=== PATIENT | male | born 2000 | race Caucasian/White ===

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

== ENCOUNTER 2019-03-31 16:36 | Inpatient (IN) ==
[2019-03-31] MEDS ORDERED: ONDANSETRON INJ 2 MG/ML 2 ML VIAL IV STA ×2 (17:01→18:57)
[2019-03-31] MEDS ORDERED: SODIUM CHLORIDE 0.9% 1000ML 1,000 ML IV SCH ×2 (17:15→21:15)
--- NOTE | 2019-03-31 17:26 | Emergency Department Note ---
Entered by Dilcia Jackson acting as a scribe for History of Present Illness General Chief complaint: Overdose (Intentional) Stated complaint: TOOK 64 TYLENOL Time Seen by Provider: 03/31/19 16:59 Source: patient and family (parents) Mode of arrival: ambulatory Limitations: no limitations History of Present Illness Provider complaint: Overdose (intentional) Onset (ago): hour(s) (around 0600 today) greater than 10 Location: mouth Radiation: non-radiation Pain Consistency: + other (episode) Maximum Pain Intensity: 7 Quality: + other (Tylenol overdose (intentional)) Associated symptoms: + nausea/vomiting and + other (Additional symptoms: right flank/abdominal pain. Denies: weight loss) The patient is a 19 year old male with a history of anorexia nervosa, depression, OCD, and an appendectomy who presents to the Emergency Room with complaints of an episode of an intentional overdose occurring around 0600 today. The patient reports that he took between 32-40 pills all at once. His father states that the patient lives with him and his and that he found the patient covered in vomit around 1530. The patient reports that he is currently nauseous and that his right side is painful. The patients note that they have not yet called Poison Control. The mother states that the patient has been in multiple [facility] care facilities for anorexia and recently returned from a 6 month stay in a facility in [place]. The father indicates that the patient's weight has been holding well but questions the patient's mental stability. The mother adds that the patient has been hospitalized twice for anorexia in the past and was in the ICU for 2 weeks for one of these admissions. The patient concedes to smoking marijuana once a day. Home Medications Home Medications Medication Instructions Recorded Confirmed Type atomoxetine 40 mg PO DAILY 03/31/19 03/31/19 History Allergies Allergy/AdvReac Type Severity Reaction Status Date / Time No Known Allergies Allergy NONE Unverified 03/31/19 18:07 Past Med/Surg History Medical History Acne (Chronic) Anorexia nervosa, binge-eating purging type Anxiety Caloric malnutrition Generalized anxiety disorder Hydrocele (Resolved) Liver function abnormality Major depressive disorder Marijuana use Obsessive compulsive disorder (Chronic) Surgical History History of appendectomy (Resolved) History of appendectomy Family History Father No problems noted. Mother No problems noted. Social History Preferred Language: Albanian Communication Ability: Effective Transmitter Chief Required: No Beliefs That Will Affect Care: None Current Living Situation: Parent Feels Safe at Home: Yes Smoking Status: Current every day smoker Tobacco Type: e-cigarettes ; Cigarettes Per Day: 1 ; Second Hand Exposure: Yes ; Hx Alcohol Use: Yes Alcohol type: hard liquor Hx Substance Use: Yes substance use type: marijuana Substance Use Type Other:: Xanax Last Used Substance: Days (ago) Review of Systems See HPI for pertinent positives & negatives. and A total of 10 systems reviewed and were otherwise negative Physical Exam Vital Signs Vital Signs - 24 hr 03/31/19 16:50 03/31/19 17:01 03/31/19 17:15 Temperature 36.3 C L 36.7 C Temperature Source Oral Oral Pulse Rate 98 H 79 Pulse Rate [Right Apical] 72 Pulse Rate from SpO2 Sensor 77 Pulse Rhythm Regular Pulse Rhythm [Right Apical] Regular Pulse Strength Normal Pulse Strength [Right Apical] Normal Respiratory Rate 18 16 21 Respiratory Effort / Characteristics Non-Labored Spontaneous Non-Labored Respiratory Depth Normal Normal Respiratory Pattern Regular Regular Blood Pressure 123/76 131/70 Blood Pressure [Right Arm] 131/70 Blood Pressure Mean 91 90 Blood Pressure Mean [Right Arm] 90 Blood Pressure Position Sitting Blood Pressure Position [Right Arm] Sitting Pulse Oximetry 98 99 99 Oxygen Delivery Method Room Air Room Air Sepsis Recent Fever Within 48 Hours No Sepsis New/Unexplained Change in Mental Status No Sepsis Action Taken by Nursing No Action Required 03/31/19 17:25 03/31/19 17:30 03/31/19 17:31 Temperature Temperature Source Pulse Rate 72 66 82 Pulse Rate [Right Apical] Pulse Rate from SpO2 Sensor 71 66 Pulse Rhythm Pulse Rhythm [Right Apical] Pulse Strength Pulse Strength [Right Apical] Respiratory Rate 16 17 14 Respiratory Effort / Characteristics Respiratory Depth Respiratory Pattern Blood Pressure 128/70 Blood Pressure [Right Arm] Blood Pressure Mean 89 Blood Pressure Mean [Right Arm] Blood Pressure Position Blood Pressure Position [Right Arm] Pulse Oximetry 99 99 Oxygen Delivery Method Sepsis Recent Fever Within 48 Hours Sepsis New/Unexplained Change in Mental Status Sepsis Action Taken by Nursing 03/31/19 17:45 03/31/19 17:46 03/31/19 18:00 Temperature Temperature Source Pulse Rate 65 66 66 Pulse Rate [Right Apical] Pulse Rate from SpO2 Sensor 65 66 65 Pulse Rhythm Pulse Rhythm [Right Apical] Pulse Strength Pulse Strength [Right Apical] Respiratory Rate 22 22 23 Respiratory Effort / Characteristics Respiratory Depth Respiratory Pattern Blood Pressure 111/60 115/64 Blood Pressure [Right Arm] Blood Pressure Mean 77 81 Blood Pressure Mean [Right Arm] Blood Pressure Position Blood Pressure Position [Right Arm] Pulse Oximetry 99 99 99 Oxygen Delivery Method Sepsis Recent Fever Within 48 Hours Sepsis New/Unexplained Change in Mental Status Sepsis Action Taken by Nursing 03/31/19 18:01 03/31/19 18:15 03/31/19 18:16 Temperature Temperature Source Pulse Rate 66 63 65 Pulse Rate [Right Apical] Pulse Rate from SpO2 Sensor 67 63 66 Pulse Rhythm Pulse Rhythm [Right Apical] Pulse Strength Pulse Strength [Right Apical] Respiratory Rate 22 22 22 Respiratory Effort / Characteristics Respiratory Depth Respiratory Pattern Blood Pressure 112/66 Blood Pressure [Right Arm] Blood Pressure Mean 81 Blood Pressure Mean [Right Arm] Blood Pressure Position Blood Pressure Position [Right Arm] Pulse Oximetry 99 99 99 Oxygen Delivery Method Sepsis Recent Fever Within 48 Hours Sepsis New/Unexplained Change in Mental Status Sepsis Action Taken by Nursing 03/31/19 18:30 03/31/19 18:31 03/31/19 18:45 Temperature Temperature Source Pulse Rate 66 67 67 Pulse Rate [Right Apical] Pulse Rate from SpO2 Sensor 67 67 67 Pulse Rhythm Pulse Rhythm [Right Apical] Pulse Strength Pulse Strength [Right Apical] Respiratory Rate 21 21 22 Respiratory Effort / Characteristics Respiratory Depth Respiratory Pattern Blood Pressure 114/63 119/62 Blood Pressure [Right Arm] Blood Pressure Mean 80 81 Blood Pressure Mean [Right Arm] Blood Pressure Position Blood Pressure Position [Right Arm] Pulse Oximetry 99 99 98 Oxygen Delivery Method Room Air Sepsis Recent Fever Within 48 Hours Sepsis New/Unexplained Change in Mental Status Sepsis Action Taken by Nursing 03/31/19 19:00 03/31/19 19:08 03/31/19 19:16 Temperature Temperature Source Pulse Rate 63 67 Pulse Rate [Right Apical] Pulse Rate from SpO2 Sensor 63 67 Pulse Rhythm Pulse Rhythm [Right Apical] Pulse Strength Pulse Strength [Right Apical] Respiratory Rate 22 21 Respiratory Effort / Characteristics Respiratory Depth Respiratory Pattern Blood Pressure 117/66 113/63 Blood Pressure [Right Arm] Blood Pressure Mean 83 79 Blood Pressure Mean [Right Arm] Blood Pressure Position Blood Pressure Position [Right Arm] Pulse Oximetry 97 96 Oxygen Delivery Method Room Air Room Air Room Air Sepsis Recent Fever Within 48 Hours Sepsis New/Unexplained Change in Mental Status Sepsis Action Taken by Nursing 03/31/19 19:30 03/31/19 19:45 03/31/19 20:00 Temperature Temperature Source Pulse Rate 68 70 67 Pulse Rate [Right Apical] Pulse Rate from SpO2 Sensor 69 69 67 Pulse Rhythm Pulse Rhythm [Right Apical] Pulse Strength Pulse Strength [Right Apical] Respiratory Rate 22 21 22 Respiratory Effort / Characteristics Respiratory Depth Respiratory Pattern Blood Pressure 112/61 115/65 117/62 Blood Pressure [Right Arm] Blood Pressure Mean 78 81 80 Blood Pressure Mean [Right Arm] Blood Pressure Position Blood Pressure Position [Right Arm] Pulse Oximetry 96 95 96 Oxygen Delivery Method Room Air Room Air Room Air Sepsis Recent Fever Within 48 Hours Sepsis New/Unexplained Change in Mental Status Sepsis Action Taken by Nursing 03/31/19 20:15 03/31/19 20:30 03/31/19 20:45 Temperature Temperature Source Pulse Rate 64 65 74 Pulse Rate [Right Apical] Pulse Rate from SpO2 Sensor 65 64 73 Pulse Rhythm Pulse Rhythm [Right Apical] Pulse Strength Pulse Strength [Right Apical] Respiratory Rate 20 22 13 Respiratory Effort / Characteristics Respiratory Depth Respiratory Pattern Blood Pressure 111/64 114/61 115/61 Blood Pressure [Right Arm] Blood Pressure Mean 79 78 79 Blood Pressure Mean [Right Arm] Blood Pressure Position Blood Pressure Position [Right Arm] Pulse Oximetry 95 96 96 Oxygen Delivery Method Room Air Room Air Room Air Sepsis Recent Fever Within 48 Hours Sepsis New/Unexplained Change in Mental Status Sepsis Action Taken by Nursing 03/31/19 21:00 Temperature Temperature Source Pulse Rate 83 Pulse Rate [Right Apical] Pulse Rate from SpO2 Sensor 81 Pulse Rhythm Pulse Rhythm [Right Apical] Pulse Strength Pulse Strength [Right Apical] Respiratory Rate 14 Respiratory Effort / Characteristics Respiratory Depth Respiratory Pattern Blood Pressure 113/87 Blood Pressure [Right Arm] Blood Pressure Mean 95 Blood Pressure Mean [Right Arm] Blood Pressure Position Blood Pressure Position [Right Arm] Pulse Oximetry 97 Oxygen Delivery Method Room Air Sepsis Recent Fever Within 48 Hours Sepsis New/Unexplained Change in Mental Status Sepsis Action Taken by Nursing GENERAL: Patient is awake alert in no acute distress patient is resting comfortably. EYES: The conjunctivae are clear. The pupils are round and reactive. EARS, NOSE, MOUTH AND THROAT: The nose is without any evidence of any deformity. Mucous membranes are moist tongue is midline NECK: The neck is nontender and supple. RESPIRATORY: Normal respiratory effort is noted there is no evidence of wheezing rhonchi or rales CARDIOVASCULAR: Regular rate and rhythm noted there no murmurs rubs or gallops normal S1 normal S2 GASTROINTESTINAL: The abdomen is soft and nondistended. There is right flank tenderness to palpation but no guarding or rigidity. MUSCULOSKELETAL/EXTREMITIES: There is no evidence of gross deformity full range of motion is noted in the hips and shoulders SKIN: There is no obvious evidence of any rash. There are no petechiae, pallor or cyanosis noted. NEUROLOGIC: Patient is awake alert and oriented x3 strength is symmetric patellar reflexes are 2+ bilaterally PSYCH: Affect is flat. The patient appears very depressed. The patient makes poor eye contact for most of the exam. Patient admits that he took these medications in an attempt to harm himself. Course 1700: The patient was evaluated in room B1, and a complete history and physical examination were performed. 1746: The patient indicated that he also took 20 Tylenol PM on top of what he previously indicated. 1830: I spoke to Poison Control about the patient's case. I also reviewed the case with Dr. Shandra Blas. Dr. Devi will evaluate the patient for further management. Consultations Consultation #1: I spoke to Poison Control about the patient's case. I also reviewed the case with Dr. Shandra Blas. Dr. Devi will evaluate the patient for further management. Time: 18:30 Administered Medications Calcium Carbonate (Tums) 500 mg PO Q4H PRN PRN Reason: Indigestion Stop: 05/01/19 13:24 Last Admin: 04/03/19 20:19 Dose: 500 mg Documented by: [id number] Admin: 04/02/19 03:26 Dose: 500 mg Documented by: [id number] Admin: 04/01/19 21:09 Dose: 500 mg Documented by: [id number] Admin: 04/01/19 14:15 Dose: 500 mg Documented by: [id number] Ondansetron HCl (Zofran) 4 mg IV Q4H PRN PRN Reason: Nausea Stop: 05/01/19 16:15 Last Admin: 04/02/19 03:26 Dose: 4 mg Documented by: [id number] Discontinued Medications Sodium Chloride (Nss 1000ml) 1,000 mls @ 999 mls/hr IV .Q1H1M MICHAEL Stop: 03/31/19 18:15 Last Infusion: 03/31/19 18:31 Dose: 0 mls/hr Documented by: [id number] Admin: 03/31/19 17:24 Dose: 999 mls/hr Documented by: [id number] Acetylcysteine 7,800 mg/ (Dextrose) 239 mls @ 200 mls/hr IV NOW ONE; Protocol Stop: 03/31/19 18:41 Last Infusion: 03/31/19 18:59 Dose: 0 mls/hr Documented by: [id number] Admin: 03/31/19 17:45 Dose: 200 mls/hr Documented by: [id number] Acetylcysteine 2,600 mg/ (Dextrose) 513 mls @ 125 mls/hr IV TODAY@1840 ONE; Protocol Stop: 03/31/19 22:46 Last Infusion: 03/31/19 23:19 Dose: 0 mls/hr Documented by: [id number] Admin: 03/31/19 18:45 Dose: 125 mls/hr Documented by: [id number] Acetylcysteine 5,200 mg/ (Dextrose) 1,026 mls @ 62.5 mls/hr IV TODAY@2245 ONE; Protocol Stop: 04/01/19 15:09 Last Infusion: 04/01/19 15:45 Dose: 0 mls/hr Documented by: [id number] Admin: 03/31/19 23:19 Dose: 62.5 mls/hr Documented by: [id number] Sodium Chloride (Nss 1000ml) 1,000 mls @ 75 mls/hr IV .[id number] MICHAEL Stop: 04/30/19 21:14 Last Infusion: 04/01/19 10:15 Dose: 0 mls/hr Documented by: [id number] Admin: 03/31/19 21:36 Dose: 75 mls/hr Documented by: [id number] Promethazine HCl (Phenergan) 6.25 mg in 50.25 mls @ 201 mls/hr IV NOW STA Stop: 03/31/19 21:29 Last Infusion: 03/31/19 21:50 Dose: 0 mls/hr Documented by: [id number] Admin: 03/31/19 21:36 Dose: 201 mls/hr Documented by: [id number] Acetylcysteine 5,200 mg/ (Dextrose) 1,026 mls @ 62.5 mls/hr IV TODAY@1500 ONE; Protocol Stop: 04/02/19 07:24 Last Infusion: 04/02/19 07:44 Dose: 0 mls/hr Documented by: [id number] Admin: 04/01/19 15:15 Dose: 62.5 mls/hr Documented by: [id number] Acetylcysteine 5,370 mg/ (Dextrose) 1,026.85 mls @ 62.5 mls/hr IV ONE ONE Stop: 04/02/19 23:55 Last Infusion: 04/03/19 00:19 Dose: 0 mls/hr Documented by: [id number] Admin: 04/02/19 07:44 Dose: 62.5 mls/hr Documented by: [id number] Cosigned by: [id number] Acetylcysteine 5,370 mg/ (Dextrose) 1,026.85 mls @ 62.5 mls/hr IV ONE ONE Stop: 04/03/19 16:55 Last Infusion: 04/03/19 17:06 Dose: 0 mls/hr Documented by: [id number] Admin: 04/03/19 00:35 Dose: 62.5 mls/hr Documented by: [id number] Acetylcysteine 5,370 mg/ (Dextrose) 1,026.85 mls @ 62.5 mls/hr IV ONE ONE Stop: 04/04/19 09:25 Last Infusion: 04/04/19 09:35 Dose: 0 mls/hr Documented by: [id number] Admin: 04/03/19 17:06 Dose: 62.5 mls/hr Documented by: [id number] Acetylcysteine 5,370 mg/ (Dextrose) 1,026.85 mls @ 62.5 mls/hr IV ONE ONE Stop: 04/05/19 01:55 Last Infusion: 04/05/19 02:06 Dose: 0 mls/hr Documented by: [id number] Admin: 04/04/19 09:07 Dose: 62.5 mls/hr Documented by: [id number] Ondansetron HCl (Zofran) 4 mg IV NOW STA Stop: 03/31/19 17:02 Last Admin: 03/31/19 17:34 Dose: 4 mg Documented by: [id number] Ondansetron HCl (Zofran) 4 mg IV NOW STA Stop: 03/31/19 18:58 Last Admin: 03/31/19 19:01 Dose: 4 mg Documented by: [id number] Potassium Chloride (Klor-Con Pwd) 40 meq PO BID MICHAEL Stop: 04/02/19 21:01 Last Admin: 04/02/19 22:16 Dose: 40 meq Documented by: [id number] Admin: 04/02/19 07:44 Dose: 40 meq Documented by: [id number] Cosigned by: [id number] Impression & Plan Tylenol overdose, Right upper quadrant abdominal pain, Nausea and vomiting Critical Care Time Critical Care Time: Yes Total Critical Care Time: 60 I have personally spent 60 minutes of critical care time in the direct management of this patient. This includes bedside care, interpretation of diagnostic studies, and testing, discussion with consultants, patient, and family members, and other required patient management activities. This 60 minutes is in excess of all separately billable procedures. Discharge Plan Visit Data *Final* Discharge Date/Time: 03/31/19 22:04 Chief Complaint: Overdose (Intentional) Stated Complaint: TOOK 64 TYLENOL ED Provider: Otf Coe Discharge Problem: Tylenol overdose, Right upper quadrant abdominal pain, Nausea and vomiting Patient Disposition: Admitted As Inpatient Discharge Instructions Interventions: ED Discharge Assessment Last Done: 03/31/19 22:04 Medical Decision Making Differential Diagnosis Differential diagnosis: Etiologies such as toxicologic, infection, hypoglycemia, electrolyte abnormalities, cardiac sources, intracerebral event, neurologic, as well as others were entertained. Medical Records Attestation: I reviewed the patient's medical records. Home Medications Current Medication List: was personally reviewed by me Laboratory Data Attestation: I reviewed the patient's lab results. Result diagrams: 04/04/19 05:24 04/04/19 21:35 Lab Results 03/31/19 03/31/19 03/31/19 Range/Units 17:09 17:09 17:09 WBC 1.97 L (4.8-10.8) K/uL RBC 5.37 (4.7-6.1) M/uL Hgb 16.5 (14.0-18.0) g/dL Hct 48.1 (42-52) % MCV 89.6 (80-100) fL MCH 30.7 (25-34) pg MCHC 34.3 (32-36) g/dL RDW Std Deviation 46.8 H (36.4-46.3) fL RDW Coeff of Adrienne 14.3 (11.5-14.5) % Plt Count 250 (130-400) K/uL MPV 9.6 (7.4-10.4) fL Immature Gran % (Auto) 0.0 % Neut % (Auto) 59.9 % Lymph % (Auto) 24.4 % [place] % (Auto) 15.2 % Eos % (Auto) 0.0 % Baso % (Auto) 0.5 % Immature Gran # (Auto) 0.00 (0.00-0.02) K/uL Neut # (Auto) 1.18 L (1.4-6.5) K/uL Lymph # (Auto) 0.48 L (1.2-3.4) K/uL [place] # (Auto) 0.30 (0.11-0.59) K/uL Eos # (Auto) 0.00 (0-0.5) K/uL Baso # (Auto) 0.01 (0-0.2) K/uL PT 11.9 (9.0-12.0) Seconds INR 1.2 H (0.9-1.1) APTT 23.6 (21.0-31.0) Seconds PTT Ratio 0.9 Sodium 140 (136-145) mmol/L Potassium 3.8 (3.5-5.1) mmol/L Chloride 107 (98-107) mmol/L Carbon Dioxide 19 L (21-32) mmol/L Anion Gap 14.0 H (3-11) BUN 15 (7-18) mg/dl Creatinine 1.23 (0.6-1.4) mg/dl Est Cr Clr Drug Dosing 70.4 ml/min Est GFR ( Amer) 96.7 Est GFR (Non-Af Amer) 83.4 BUN/Creatinine Ratio 11.8 (10-20) Glucose 306 H* (70-99) mg/dl Calcium 8.6 (8.5-10.1) mg/dl Magnesium 2.0 (1.8-2.4) mg/dl Total Bilirubin 0.4 (0.2-1) mg/dl AST 154 H (15-37) U/L ALT 233 H (12-78) U/L Alkaline Phosphatase 184 H (45-117) U/L Total Creatine Kinase 593 H (39-308) U/L Troponin I < 0.015 (0-0.045) ng/ml Total Protein 7.4 (6.4-8.2) gm/dl Albumin 4.5 (3.4-5.0) gm/dl Globulin 2.9 (2.5-4.0) gm/dl Albumin/Globulin Ratio 1.6 (0.9-2) Lipase 122 (73-393) U/L Beta-Hydroxybutyric Acd 2.46 (0.2-2.81) mg/dl Salicylates (2.8-20) mg/dl Acetaminophen (10-30) ug/ml Ethyl Alcohol mg/dL (0-3) mg/dl 03/31/19 03/31/19 Range/Units 17:09 17:10 WBC (4.8-10.8) K/uL RBC (4.7-6.1) M/uL Hgb (14.0-18.0) g/dL Hct (42-52) % MCV (80-100) fL MCH (25-34) pg MCHC (32-36) g/dL RDW Std Deviation (36.4-46.3) fL RDW Coeff of Adrienne (11.5-14.5) % Plt Count (130-400) K/uL MPV (7.4-10.4) fL Immature Gran % (Auto) % Neut % (Auto) % Lymph % (Auto) % [place] % (Auto) % Eos % (Auto) % Baso % (Auto) % Immature Gran # (Auto) (0.00-0.02) K/uL Neut # (Auto) (1.4-6.5) K/uL Lymph # (Auto) (1.2-3.4) K/uL [place] # (Auto) (0.11-0.59) K/uL Eos # (Auto) (0-0.5) K/uL Baso # (Auto) (0-0.2) K/uL PT (9.0-12.0) Seconds INR (0.9-1.1) APTT (21.0-31.0) Seconds PTT Ratio Sodium (136-145) mmol/L Potassium (3.5-5.1) mmol/L Chloride (98-107) mmol/L Carbon Dioxide (21-32) mmol/L Anion Gap (3-11) BUN (7-18) mg/dl Creatinine (0.6-1.4) mg/dl Est Cr Clr Drug Dosing ml/min Est GFR ( Amer) Est GFR (Non-Af Amer) BUN/Creatinine Ratio (10-20) Glucose (70-99) mg/dl Calcium (8.5-10.1) mg/dl Magnesium (1.8-2.4) mg/dl Total Bilirubin (0.2-1) mg/dl AST (15-37) U/L ALT (12-78) U/L Alkaline Phosphatase (45-117) U/L Total Creatine Kinase (39-308) U/L Troponin I (0-0.045) ng/ml Total Protein (6.4-8.2) gm/dl Albumin (3.4-5.0) gm/dl Globulin (2.5-4.0) gm/dl Albumin/Globulin Ratio (0.9-2) Lipase (73-393) U/L Beta-Hydroxybutyric Acd (0.2-2.81) mg/dl Salicylates < 1.7 L (2.8-20) mg/dl Acetaminophen 509 H* (10-30) ug/ml Ethyl Alcohol mg/dL < 3.0 (0-3) mg/dl Imaging Data Radiologist's Impression: Radiology results as stated below per my review and the radiologist's interpretation: XR chest 1V portable CLINICAL HISTORY: 19 years-old Male presenting with overdose. TECHNIQUE: Portable upright AP view of the chest was obtained. COMPARISON: 12/07/2016. FINDINGS: Cardiomediastinal silhouette normal. No focal opacity. No large effusion or pneumothorax. Osseous structures normal. Upper abdomen normal. IMPRESSION: 1. No acute cardiopulmonary disease. Electronically signed by: Garry London M.D. 03/31/2019 5:26 PM ECG Data Attestation: I personally reviewed and interpreted this ECG as follows: Indication: + toxicologic Rate (beats per minute): 64 Rhythm: + normal sinus ECG ST segments: + Normal ST segments (no acute ST segments) ECG Findings: + Other (QRS is 90, QTC is 431); no PACs and no PVCs Comparison ECG Date: from (02/04/18) Change: no significant change Blood Pressure Blood Pressure Findings: Normal blood pressure MDM Narrative The patient is a 19-year-old male who presented to the emergency department after a suicidal gesture. The patient admits to taking a significant amount of Tylenol early this morning. The patient started having abdominal pain nausea and vomiting. When his parents became aware of this overdose he was brought to the emergency department for further evaluation. The patient was treated with IV fluids and IV antiemetics. He was reevaluated multiple times. The patient was found to have a very elevated Tylenol level. He was started on N-acetylcyst eine almost immediately upon arrival just given his history of the overdose. Later on the patient did admit that this was Tylenol p.m. I discussed the patient's laboratory and radiographic studies with the on-call [facility] hospitalist group. They have agreed to evaluate patient in the emergency department for further management disposition. I also discussed this case with the Poison Control Center. Discharge Problem: Tylenol overdose Qualifiers: Encounter type: initial encounter Injury intent: intentional self-harm Qualified Code(s): T39.1X2A - Poisoning by 4-Aminophenol derivatives, intentional self-harm, initial encounter Nausea and vomiting Qualifiers: Vomiting type: unspecified Vomiting Intractability: unspecified Qualified Code(s): R11.2 - Nausea with vomiting, unspecified The scribe's documentation has been prepared under my direction and personally reviewed by me in its entirety. I confirm that the note above accurately reflects all work, treatment, procedures, and medical decision making performed by me.
[2019-03-31 17:29] LABS: Basophils # (auto) 0.01 K/uL (0-0.2); Basophils % (auto) 0.5 %; Hematocrit (blood only) 48.1 % (42-52); Hemoglobin 16.5 g/dL (14.0-18.0); Lymphocytes # (auto) 0.48 K/uL (1.2-3.4); Lymphocytes % (auto) 24.4 %; Mean Corpuscular Hemoglobin 30.7 pg (25-34); Mean Corpuscular Hgb Conc 34.3 g/dL (32-36); Mean Corpuscular Volume 89.6 fL (80-100); Mean Platelet Volume 9.6 fL (7.4-10.4); Monocytes % (auto) 15.2 %; Neutrophils # (auto) 1.18 K/uL (1.4-6.5); Neutrophils % (auto) 59.9 %; Platelet Count 250 K/uL (130-400); RDW Coefficient of Variation 14.3 % (11.5-14.5); RDW Standard Deviation 46.8 fL (36.4-46.3); Red Blood Count 5.37 M/uL (4.7-6.1); White Blood Count 1.97 K/uL (4.8-10.8)
[2019-03-31 17:44] LABS: INR 1.2 (0.9-1.1); Partial Thromboplastin Ratio 0.9; Partial Thromboplastin Time 23.6 Seconds (21.0-31.0); Prothrombin Time 11.9 Seconds (9.0-12.0)
[2019-03-31 18:06] LABS: Acetaminophen 509 ug/ml (10-30); Salicylate < 1.7 mg/dl (2.8-20)
[2019-03-31 18:08] LABS: Alanine Aminotransferase 233 U/L (12-78); Albumin Globulin Ratio 1.6 (0.9-2); Albumin Level 4.5 gm/dl (3.4-5.0); Alkaline Phosphatase 184 U/L (45-117); Aspartate Aminotransferase 154 U/L (15-37); BUN Creatinine Ratio 11.8 (10-20); Bilirubin,Total 0.4 mg/dl (0.2-1); Blood Urea Nitrogen 15 mg/dl (7-18); Calcium 8.6 mg/dl (8.5-10.1); Carbon Dioxide 19 mmol/L (21-32); Chloride 107 mmol/L (98-107); Creatine Kinase 593 U/L (39-308); Creatinine Clr Calc Pharmacy 70.4 ml/min; Est GFR (African American) 96.7; Est GFR (Non-African American) 83.4; Globulin 2.9 gm/dl (2.5-4.0); Glucose 306 mg/dl (70-99); Lipase 122 U/L (73-393); Potassium 3.8 mmol/L (3.5-5.1); Sodium 140 mmol/L (136-145); Total Protein 7.4 gm/dl (6.4-8.2); Troponin I < 0.015 ng/ml (0-0.045)
[2019-03-31 18:21] LABS: Beta-Hydroxybutyrate 2.46 mg/dl (0.2-2.81)
[2019-03-31] MEDS ORDERED: ZOLPIDEM TARTRATE 5 MG TAB PO PRN (21:04)
[2019-03-31] MEDS ORDERED: PROMETHAZINE 6.25 MG/50.25 ML BAG IV STA (21:15)
--- NOTE | 2019-03-31 21:20 | History & Physical Report ---
Date of Service March 31, 2019 Assessment & Plan (1) Tylenol overdose: Intentional/suicidal Started Acetadote Poison control recommended LFTs and INR at 11 AM tomorrow, and based on that they should receive a call and decide whether they want to continue another set of Acetadote or not Consult psych IV fluid hydration Admit to PCU Counseled patient Hold off pharmacologic DVT prophylaxis due to expected rise and INR (2) Right upper quadrant abdominal pain: Resolved (3) Nausea and vomiting: Likely secondary to Tylenol toxicity and antihistaminic and Tylenol PM (4) Nicotine dependence: Nicotine patch (5) Liver function abnormality: Follow-up LFTs (6) Eating disorder: Can be managed as an outpatient History of Present Illness 19-year-old with past medical history of anorexia nervosa, status post admission to rehab, history is obtained mainly from the patient and his mother at bedside. He was admitted to ICU about a year ago because of electrolyte imbalance due to his anorexia nervosa. After that family put him in inpatient rehab for 3 months, followed by another. Of 6 months from September to February 2019, recently discharged from rehab which was in intensive inpatient and outpatient program. After that he expressed his feelings of depression and feeling lost and there is nothing for him to do he, he is not sure where he will go or what he is going to do with his life. Mother said that he threatened to commit suicide many years ago but he never did it. Then today he did swallow significant amount of Tylenol tablets appears to be 30 extra strength Tylenol +20 Tylenol PM, he did not tell anyone, he stayed home until his father came from work around 3:57 PM and found him with multiple episodes of vomiting around him. He brought him to the hospital. When asked about why he did that, he said I am not happy Primary Care Provider: Paola De Leon MD Allergies Allergy/AdvReac Type Severity Reaction Status Date / Time No Known Allergies Allergy NONE Unverified 03/31/19 18:07 Home Medications Home Medications Medication Instructions Recorded Confirmed Type atomoxetine 40 mg PO DAILY 03/31/19 03/31/19 History Past Med/Surg History Medical History Acne (Chronic) Obsessive compulsive disorder (Chronic) Hydrocele (Resolved) Anorexia nervosa, binge-eating purging type Anxiety Caloric malnutrition Generalized anxiety disorder Liver function abnormality Major depressive disorder Marijuana use Surgical History History of appendectomy (Resolved) History of appendectomy Family History Father No problems noted. Mother No problems noted. Social History Preferred Language: Hungarian Communication Ability: Effective It Project Manager Required: Yes Beliefs That Will Affect Care: None Current Living Situation: Family Feels Safe at Home: Yes Smoking Status: Never smoker Tobacco Type: e-cigarettes ; Second Hand Exposure: Yes ; Hx Alcohol Use: No Hx Substance Use: Yes substance use type: marijuana and prescription drug Substance Use Type Other:: Xanax Review of Systems Review of Systems: Review of system Constitutional: No fever / no chills / no sweats / no weakness / no fatigue Eyes: no blurring of vision / no eye pain / no discharge / no redness ENT: no hearing loss / no epistaxis /no swallowing problems Respiratory: no cough / no wheezing / no SOB / no hemoptysis Cardiovascular: no Chest pain / no lower extremity edema / no palpitation Abdomen: no pain / no nausea / no vomiting / no constipation Musculoskeletal: no joint pain / no muscle pain / no joint swelling Genitourinary: no dysuria / no incontinence / no urinary retention Neurologic: no focal weakness / no numbness/tingling / no ataxia Psychiatric: Severe depression and unhappiness Endocrine: no excessive thirst / no excessive urination Hematologic: no abnormal bleeding / no bruising / no LN swelling Skin: No rash / no pallor Physical Exam Physical Exam: Physical examination General patient appears to be comfortable, not in acute distress HEENT: Atraumatic , normocephalic /no jaundice /no pallor /anicteric /no dry mucous membrane /normal external ear inspection Neck: Supple /no swelling /central trach Heart: S1/S2 normal/regular rate and rhythm/no gallop /no rub /no murmur Lungs: Clear to auscultation bilaterally/normal chest with expansion/no rhonchi/no rales/no wheezing/no use of accessory muscles of respiration Abdomen: Soft/nontender/no guarding/no rebound/no organomegaly/no pulsatile mass Musculoskeletal: No swelling/no edema/no tenderness/normal range of motion Neuro exam: Awake alert oriented 3/cranial nerves II through XII appear to be intact/sensation intact/moves all extremities/no abnormal movements Psychiatric evaluation: No depressed mood/normal affect Skin: No rash on exposed skin area/no erythema Extremity: Normal pulse/no pitting edema/no clubbing or cyanosis Endocrine/lymphatic: No obvious lymphadenopathy /no lymphedema Results & Data Vital Signs (Past 12 Hours) Vital Signs Temp Pulse Pulse Resp BP BP Pulse Ox 03/31/19 20:45 74 13 115/61 96 03/31/19 20:30 65 22 114/61 96 03/31/19 20:15 64 20 111/64 95 03/31/19 20:00 67 22 117/62 96 03/31/19 19:45 70 21 115/65 95 03/31/19 19:30 68 22 112/61 96 03/31/19 19:16 67 21 113/63 96 03/31/19 19:00 63 22 117/66 97 03/31/19 18:45 67 22 119/62 98 03/31/19 18:31 67 21 99 03/31/19 18:30 66 21 114/63 99 03/31/19 18:16 65 22 99 03/31/19 18:15 63 22 112/66 99 03/31/19 18:01 66 22 99 03/31/19 18:00 66 23 115/64 99 03/31/19 17:46 66 22 99 03/31/19 17:45 65 22 111/60 99 03/31/19 17:31 82 14 03/31/19 17:30 66 17 128/70 99 03/31/19 17:25 72 16 99 03/31/19 17:15 79 21 131/70 99 03/31/19 17:01 36.7 C 72 16 131/70 99 03/31/19 16:50 36.3 C L 98 H 18 123/76 98 Code Status & VTE Plan VTE Prophylaxis Plan VTE Prophylaxis will be ordered: Yes PG Care Time/CCT Total # of Minutes Spent Total Time Spent with Patient: 35 minutes total time spent is greater than 50% in coordination of care (as documented) at patient's floor/unit and/or counseling patient/family discussion of care with nursing staff (1) Tylenol overdose Encounter type: initial encounter Injury intent: intentional self-harm Qualified Code(s): T39.1X2A - Poisoning by 4-Aminophenol derivatives, intentional self-harm, initial encounter (2) Nausea and vomiting Vomiting Intractability: unspecified Vomiting type: unspecified Qualified Code(s): R11.2 - Nausea with vomiting, unspecified
[2019-03-31 23:19] LABS: Appearance Urine Clear (Clear); Bilirubin Urine Negative (Negative); Blood Urine Negative (Negative); Color Urine Yellow; Glucose Urine UA 3+ (Negative); Ketones Urine 1+ (Negative); Leukocyte Esterase Urine Negative (Negative); Nitrite Urine Negative (Negative); Protein Urine Negative (Negative); Specific Gravity Urine 1.042 (1.000-1.030); Urobilinogen Urine Negative (Negative)
[2019-03-31 23:38] LABS: Amphetamines+Metham, Urine Neg (Neg); Barbiturates, Urine Neg (Neg); Benzodiazepine, Urine Neg (Neg); Cocaine, Urine Neg (Neg); MDMA (Ecstacy), Urine Neg (Neg); Methadone, Urine Neg (Neg); Opiate, Urine Neg (Neg); Phencyclidine, Urine Neg (Neg)
[2019-04-01 11:20] LABS: Basophils # (auto) 0.01 K/uL (0-0.2); Basophils % (auto) 0.1 %; Hematocrit (blood only) 42.1 % (42-52); Immature Granulocytes # (auto) 0.03 K/uL (0.00-0.02); Immature Granulocytes % (auto) 0.2 %; Lymphocytes # (auto) 1.79 K/uL (1.2-3.4); Lymphocytes % (auto) 12.9 %; Mean Corpuscular Hgb Conc 35.6 g/dL (32-36); Mean Platelet Volume 9.1 fL (7.4-10.4); Monocytes # (auto) 0.94 K/uL (0.11-0.59); Monocytes % (auto) 6.8 %; Neutrophils # (auto) 11.13 K/uL (1.4-6.5); Platelet Count 260 K/uL (130-400); RDW Coefficient of Variation 14.5 % (11.5-14.5); RDW Standard Deviation 46.4 fL (36.4-46.3); Red Blood Count 4.84 M/uL (4.7-6.1)
[2019-04-01 11:29] LABS: INR 1.6 (0.9-1.1)
[2019-04-01 11:47] LABS: Albumin Level 3.8 gm/dl (3.4-5.0); BUN Creatinine Ratio 15.8 (10-20); Bilirubin Direct 0.3 mg/dl (0-0.2); Calcium 8.9 mg/dl (8.5-10.1); Est GFR (Non-African American) 123.4; Potassium 3.2 mmol/L (3.5-5.1)
[2019-04-01 11:54] LABS: Total Protein 6.2 gm/dl (6.4-8.2)
--- NOTE | 2019-04-01 12:47 | Psychiatric Consultation ---
Date of Consultation April 01, 2019 Impression / Recommendations Impression 19-year-old male admitted 03/31/2019 after presenting to the ED status post intentional Tylenol overdose. It was reported that the patient took between 32 and 40 Tylenol around 6 AM on 03/31/2019. Patient was reportedly found around 1530 by his father, "covered in vomit." Patient was brought to the ED for medical treatment and admitted to intentional overdose of medication. Patient has a long history of anorexia nervosa, depression, and OCD. He had recently been discharged from a facility in [place], where he received intensive inpatient treatment for his eating disorder for a period of 6 months. Psychiatric consultation was requested to evaluate the patient for intentional overdose. Patient is cooperative with interview, and father provides collateral with patient's permission. Patient does endorse fluctuations of mood, but states he has been feeling predominantly depressed. Patient does admit that his overdose was a response to an episode of binge eating the night before. Patient admits that he felt guilty the next morning his suicidal ideation and. As time, patient is denying suicidal ideation, but understands inpatient psychiatric treatment would be recommended. This time the patient may be willing for admission; however, this will confirmed at time of medical clearance. Due to the significance of the patient's intentional overdose, would not recommend initiation of new psychiatric medications at this time. Pt is reportedly prescribed atomoxetine 40mg daily on an outpatient basis; however, admits he does not take the medication regularly. Agree with holding medications until medically cleared - defer restart and/or adjustment of psychiatric medications to accepting behavioral health facility. Appreciate the opportunity to participate in the care of this patient, please reach out to our service with any questions or additional needs from the primary team. Dr. Gail De La Cruz was directly involved in review and discussion of the patient's case and participated in medical decision making regarding treatment recommendations. Risk Factors Assessment Male: Yes : Yes Do You Have Access To A Gun?: No Mental Health Diagnoses: Yes Substance Use Disorders: Yes (regular marijuana use) Previous Attempt: No Family History of Suicide: No Previous Psychiatric Hospitalization: Yes (Multiple inpatient admissions for treatment of anorexia) Hopelessness: Yes (Intermittently) Protective Factors Assessment : No Responsible for Young Children: No Employed: Yes Stable Relationships: No Supportive Family: Yes Good Rapport with Provider: Yes Psych History Identifying Data 19-year-old male admitted medically on 03/31/2019 after presenting to the ED status post intentional Tylenol overdose. It is reported the patient took about 40 Tylenol around 6 AM the morning of presentation. Patient did admit that his overdose was in response to mood concerns and not feeling happy. It is reported the patient has no prior history of suicide attempts. Psychiatric consultation was requested to evaluate patient after the suicide attempt. Information is gathered from hospital documentation, the patient himself, and the patient's father with verbal permission from the patient. The combination of the sources is considered to offer reliable history. Chief Complaint "I do not know why I did it, I just been pretty sad. I get in spurts throughout the week where I just get really hopeless and depressed." History of Present Illness Fernando Paiz is a 19-year-old male admitted medically on 03/31/2019 after presenting to the ED status post intentional Tylenol overdose. It is reported that the patient had intentionally ingested at least 40 tablets of Tylenol around 6 AM the morning of admission. Patient was found by his father around 1530 in a pool with his vomit. He was brought to the ED and admitted medically for treatment and monitoring of toxic acetaminophen levels. It is reported that patient has a significant history of treatment for eating disorder, just recently being released from a 6-month inpatient facility in [place]. Psychiatric consultation was requested to evaluate patient status post intentional overdose. Patient's case was reviewed and discussed with supervising psychiatrist and psychiatric nurse liaison. Patient was cooperative with psychiatric evaluation. Upon entering his room, he is joined by a one-to-one aide and his father, Luis. Patient was offered to speak privately with this provider; however, he verbalize permission for his father to remain in the room during our discussion. Patient shares with this provider that he had been "pretty sad" for the last several days. He states that he "gets spurts throughout the week like this." Patient states that his mood is variable at times, alternating between "high energy" and "angry sadness." He states that more predominantly, his mood has been depressed, angry, and hopeless. He reports periods of increased energy, and overall feeling "happy". However these episodes last for about 20 minutes, and only occur 2 times per week. Patient states that in between these moments of high energy, his mood is "low mood all the time." Patient states that overall he has been doing well with sticking to his eating disorder dietary plan, but reports binge eating on 2 occasions since his discharge from [place]. He states his initial episode of binge eating was "to make up for the fact that I had been restricting, I was not sticking to my plan." He states that the episode of binge eating did not destabilize him, as he felt it was a way to compensate for his restrictive behaviors. The second episode, however, the patient states "I overate a lot, I felt guilty in the morning. I was slow and sluggish and felt hopeless." The patient states that this feeling led to suicidal ideation, which he acted on by ingesting excessive amounts of Tylenol. He denies any prior suicide attempts, although previous records indicate he had threatened suicide and had any inpatient psychiatric admission following this. Patient reports depressive symptoms of low mood, isolative behavior, fluctuations in quality of sleep, decreased focus, changes in appetite, apathy, limited motivation, and hopelessness. He admits to occasional episodes of suicidal ideation, but denies a history of acting on these thoughts in the past. He does admit to having been on medications to treat his depressive symptoms, but was not always compliant with the medications. After some prompting from his father, the patient admits that side effects of weight gain have led to him being inconsistent with medications in the past. He states he is currently prescribed atomoxetine, but has not been taking this medication regularly as well. Pt denies suicidality at this time, stating that he is "disappointed" at how he handled his feelings. He was informed that inpatient psychiatric treatment is recommended after serious suicide attempts such as this, and seems to be understanding of the recommendation - though does inquire about an anticipated length of stay. He and his father deny other needs or concerns at this time. Past Psychiatric History Previous Psych History: Patient has a history of both inpatient and outpatient treatment for anorexia nervosa. He is also diagnosed with depression and OCD according to hospital records. It was reported the patient had just completed a 6-month intensive inpatient program in [place] for his eating disorder. He is connected with a treatment team for his eating disorder, including a physician, dietitian, and therapist. He reportedly sees Leyda Winkler at [facility] for psychiatric medication management; however, states he has not seen her since returning back from his treatment in [place]. Current Psychiatric Diagnosis: Anorexia nervosa, depression, OCD Outpatient Services: Psychiatric medication management - Leyda Sarkar [facility] Eating disorder treatment team includes: Dr. De Leon (physician), Rachael Faustin (dietitian), and Malu (therapist at [facility]) Previous Psych Admissions: [facility] - 02/2016 Eating disorder treatment center in [place] - 09/2018, reportedly stayed in treatment for 6 months Do You Have Access To A Gun?: No History of Previous Suicide Attempt: No Describe Attempts in the Past: reported threat in the past, but no confirmed attempts Past Medication Trials: 1. Abilify 2. Effexor 3. Prozac 4. Seroquel 5. Zyprexa 6. Strattera Allergies Allergy/AdvReac Type Severity Reaction Status Date / Time No Known Allergies Allergy NONE Unverified 03/31/19 18:07 Home Medications Home Medications Medication Instructions Recorded Confirmed Type atomoxetine 40 mg PO DAILY 03/31/19 03/31/19 History Personal History Beliefs That Will Affect Care: None Patient History Medical History Acne (Chronic) Anorexia nervosa, binge-eating purging type Anxiety Caloric malnutrition Generalized anxiety disorder Hydrocele (Resolved) Liver function abnormality Major depressive disorder Marijuana use Obsessive compulsive disorder (Chronic) Surgical History History of appendectomy (Resolved) History of appendectomy Family History Father No problems noted. Mother No problems noted. Social History Preferred Language: Portuguese Communication Ability: Effective Digital Media Representative Required: No Beliefs That Will Affect Care: None Current Living Situation: Parent Feels Safe at Home: Yes Smoking Status: Current every day smoker Tobacco Type: e-cigarettes ; Cigarettes Per Day: 1 ; Second Hand Exposure: Yes ; Hx Alcohol Use: Yes Alcohol type: hard liquor Hx Substance Use: Yes substance use type: marijuana Substance Use Type Other:: Xanax Last Used Substance: Days (ago) Physical Exam Psychiatric: Orientation: alert, oriented x 3 and cooperative Apperance: appropriately dressed (casually, in t-shirt and gym shorts), appropriately groomed and appeared stated age Eye Contact: good eye contact Motor Behavior: steady gait and station and no abnormal motor movements Speech: normal rate/rhythm/volume of speech Affect: + depressed affect (mildly subdued) and mood congruent with affect Mood: + depressed mood ("it's been mostly low mood all the time") Thought Process: goal directed thought process, linear/logical thought process, clear/coherent thought process and thought association intact Thought Content: reality based without delusions and + self deprecation (consistent with diagnosis of anorexia); no hopelessness (intermittent hopelessness, but none presently) Suicidal Thoughts: denies suicidal thoughts (at present) Admits that overdose prior to admission was done in an attempt to end his life Homicidal Thoughts: denies homicidal thoughts Hallucinations: no auditory hallucinations and no visual hallucinations Cognition: attention grossly intact and language grossly intact Insight: + fair insight Judgement: + fair judgement Vital Signs (Past 24 Hours): Last Vital Signs Temp 37.1 C 04/01/19 07:30 Pulse 48 L 04/01/19 07:30 Resp 17 04/01/19 07:30 BP 130/57 L 04/01/19 07:30 Pulse Ox 96 04/01/19 07:30 Review of Systems Constitutional: denied Cardiovascular: denied Respiratory: denied Gastrointestinal: reports indigestion Neurological: denied Psychiatric: denies symptoms other than stated above Total of at least 10 systems reviewed, pertinent positives as above and in HPI. Results & Data Medications Administered Acetylcysteine 5,200 mg/ (Dextrose) 1,026 mls @ 62.5 mls/hr IV TODAY@2245 ONE; Protocol Stop: 04/01/19 15:09 Last Admin: 03/31/19 23:19 Dose: 62.5 mls/hr Documented by: [id number] Coding Level of Care Code 00796 [facility] Intl Hosp Care Lvl 3
[2019-04-01] MEDS: CALCIUM CARBONATE 500 MG CHEWABLE TAB PO PRN ×2 (14:15→21:09)
--- NOTE | 2019-04-01 14:18 | Hospitalist Progress Note ---
Date of Service April 01, 2019 Assessment & Plan (1) Tylenol overdose: Intentional/suicidal. - Started N-acetylcysteine - LFTs elevated at 190/470 with alk phos 160 and Tbili 1.0. -> Stable/improving from yesterday. - Discussed with poison control whether to continue NAC -> Will do another 16 hours. - Psychiatry recommending inpatient psychiatric stay after medically cleared. (2) Right upper quadrant abdominal pain: Resolved (3) Nausea and vomiting: Likely secondary to Tylenol toxicity and antihistaminic and Tylenol PM. - Improving (4) Nicotine dependence: Declined nicotine patch. - Monitor (5) Liver function abnormality: Due to acetaminophe. - As above (6) Eating disorder: History of. - Per psychiatry - Patient requested to speak with mill recorder. (7) DVT prophylaxis: SCDs - Low DVT risk per admission calculator Subjective Feels antzy from not being able to vape, but does not want to get a patch. Overall, otherwise doing well. Had some mild nausea with breakfast, but none at present. Reports no fevers/chills, chest pain, shortness of breath, abdominal pain, nausea, or vomiting. Physical Exam Constitutional: WD/WN, vitals as above Eyes: EOM intact bilaterally; no conjunctival abnormality ENMT: external ear and nose normal, oropharynx normal Neck: trachea midline, no thyromegaly normal visual inspection Respiratory: normal respiratory effort, lungs clear to auscultation no respiratory distress Cardiovascular: Rate/Rhythm: regular rhythm and + bradycardic Heart Sounds: normal S1 and normal S2 Vessels: no JVD Extremities: no edema Gastrointestinal (Abdomen): Inspection/Auscultation: abdomen normal to inspection; abdomen not distended Musculoskeletal: no cyanosis or clubbing, extremities motor strength 5/5 Skin: no rashes, warm and dry Neurologic: moves all extremities and awake Psychiatric: Orientation: alert, oriented to person and cooperative Results & Data Vital Signs (Past 12 Hours) Vital Signs Temp Pulse Resp BP Pulse Ox 04/01/19 07:30 37.1 C 48 L 17 130/57 L 96 04/01/19 03:30 36.7 C 53 L 18 114/60 96 PG Care Time/CCT Total # of Minutes Spent Total Time Spent with Patient: Total time spent is greater than 50% in coordination of care (as documented) at patient's floor/unit and/or counseling p atient: (1) Tylenol overdose Encounter type: initial encounter Injury intent: intentional self-harm Qualified Code(s): T39.1X2A - Poisoning by 4-Aminophenol derivatives, intentional self-harm, initial encounter (2) Nausea and vomiting Vomiting Intractability: unspecified Vomiting type: unspecified Qualified Code(s): R11.2 - Nausea with vomiting, unspecified
[2019-04-01] MEDS ORDERED: ONDANSETRON INJ 2 MG/ML 2 ML VIAL IV PRN (16:16)
[2019-04-02] MEDS: CALCIUM CARBONATE 500 MG CHEWABLE TAB PO PRN (03:26)
[2019-04-02 04:43] LABS: Hematocrit (blood only) 41.2 % (42-52); Hemoglobin 14.4 g/dL (14.0-18.0); Mean Corpuscular Hemoglobin 30.2 pg (25-34); Mean Corpuscular Volume 86.4 fL (80-100); Mean Platelet Volume 9.3 fL (7.4-10.4); Platelet Count 232 K/uL (130-400); RDW Coefficient of Variation 14.1 % (11.5-14.5); Red Blood Count 4.77 M/uL (4.7-6.1); White Blood Count 10.85 K/uL (4.8-10.8)
[2019-04-02 04:53] LABS: INR 1.8 (0.9-1.1); Prothrombin Time 17.9 Seconds (9.0-12.0)
[2019-04-02 05:09] LABS: Albumin Level 3.5 gm/dl (3.4-5.0); BUN Creatinine Ratio 12.8 (10-20); Calcium 8.5 mg/dl (8.5-10.1); Creatinine Clr Calc Pharmacy 92.5 ml/min; Est GFR (African American) 130.4; Est GFR (Non-African American) 112.5; Magnesium 1.9 mg/dl (1.8-2.4); Potassium 3.2 mmol/L (3.5-5.1)
[2019-04-02 05:28] LABS: Albumin Globulin Ratio 1.6 (0.9-2); Bilirubin,Total 1.7 mg/dl (0.2-1); Globulin 2.2 gm/dl (2.5-4.0); Phosphorus 2.6 mg/dl (2.5-4.9); Total Protein 5.7 gm/dl (6.4-8.2)
[2019-04-02] MEDS ORDERED: ACETYLCYSTEINE IV ONE ×2 (07:30)
[2019-04-02] MEDS ORDERED: DEXTROSE 5% IV ONE ×2 (07:30)
[2019-04-02] MEDS: POTASSIUM CHLORIDE PWD 20 MEQ PACK PO SCH ×2 (07:44→22:16)
--- NOTE | 2019-04-02 14:17 | Hospitalist Progress Note ---
Date of Service April 02, 2019 Assessment & Plan (1) Tylenol overdose: Intentional/suicidal. - Started N-acetylcysteine on presentation. - Psychiatry recommending inpatient psychiatric stay after medically cleared. - LFTs elevated at 190/470 with alk phos 160 and Tbili 1.0. -> Stable/improving from yesterday. - Discussed with poison control today - Continue NAC. - Unfortunately, his LFTs are still getting higher, in particular Tbili and INR. (2) Right upper quadrant abdominal pain: Resolved (3) Nausea and vomiting: Likely secondary to Tylenol toxicity and antihistaminic and Tylenol PM. - Improving (4) Nicotine dependence: Declined nicotine patch. - Monitor (5) Liver function abnormality: Due to acetaminophen. - As above (6) Eating disorder: History of. - Per psychiatry - Discussed with surveillance dual rate officer today; will try to advance meals as much as able. (7) DVT prophylaxis: SCDs - Low DVT risk per admission calculator Subjective No major complaints overnight. Overall, some nausea. Anxious and bored. Reports no fevers/chills, chest pain, shortness of breath, abdominal pain, nausea, or vomiting. Physical Exam Constitutional: WD/WN, vitals as above Eyes: EOM intact bilaterally; no conjunctival abnormality ENMT: external ear and nose normal, oropharynx normal Neck: trachea midline, no thyromegaly normal visual inspection Respiratory: normal respiratory effort, lungs clear to auscultation no respiratory distress Cardiovascular: Rate/Rhythm: regular rhythm and + bradycardic Heart Sounds: normal S1 and normal S2 Vessels: no JVD Extremities: no edema Gastrointestinal (Abdomen): Inspection/Auscultation: abdomen normal to inspection; abdomen not distended Musculoskeletal: no cyanosis or clubbing, extremities motor strength 5/5 Skin: no rashes, warm and dry Neurologic: moves all extremities and awake Psychiatric: Orientation: alert, oriented to person and cooperative Results & Data Vital Signs (Past 12 Hours) Vital Signs Temp Pulse Resp BP Pulse Ox 04/02/19 07:07 36.7 C 57 L 20 133/80 96 04/02/19 03:20 36.8 C 46 L 18 120/71 96 PG Care Time/CCT Total # of Minutes Spent Total Time Spent with Patient: Total time spent is greater than 50% in coordination of care (as documented) at patient's floor/unit and/or counseling patient: (1) Tylenol overdose Encounter type: initial encounter Injury intent: intentional self-harm Qualified Code(s): T39.1X2A - Poisoning by 4-Aminophenol derivatives, intentional self-harm, initial encounter (2) Nausea and vomiting Vomiting Intractability: unspecified Vomiting type: unspecified Qualified Code(s): R11.2 - Nausea with vomiting, unspecified
[2019-04-02 19:06] LABS: INR 1.8 (0.9-1.1); Prothrombin Time 17.4 Seconds (9.0-12.0)
[2019-04-02 19:18] LABS: BUN Creatinine Ratio 10.4 (10-20); Calcium 9.5 mg/dl (8.5-10.1); Creatinine Clr Calc Pharmacy 75.9 ml/min; Est GFR (African American) 102.7; Est GFR (Non-African American) 88.6; Potassium 3.7 mmol/L (3.5-5.1)
[2019-04-02 19:24] LABS: Albumin Globulin Ratio 1.5 (0.9-2); Bilirubin,Total 1.7 mg/dl (0.2-1); Globulin 2.6 gm/dl (2.5-4.0); Total Protein 6.6 gm/dl (6.4-8.2)
[2019-04-03] MEDS ORDERED: DEXTROSE 5% IV ONE ×2 (00:30→17:00)
[2019-04-03] MEDS ORDERED: ACETYLCYSTEINE IV ONE ×2 (00:30→17:00)
[2019-04-03 05:45] LABS: Hematocrit (blood only) 40.5 % (42-52); Hemoglobin 14.2 g/dL (14.0-18.0); Mean Corpuscular Hemoglobin 30.5 pg (25-34); Mean Corpuscular Hgb Conc 35.1 g/dL (32-36); Mean Corpuscular Volume 86.9 fL (80-100); Mean Platelet Volume 9.4 fL (7.4-10.4); Platelet Count 194 K/uL (130-400); RDW Coefficient of Variation 14.4 % (11.5-14.5); Red Blood Count 4.66 M/uL (4.7-6.1); White Blood Count 7.67 K/uL (4.8-10.8)
[2019-04-03 05:58] LABS: INR 1.7 (0.9-1.1); Prothrombin Time 17.2 Seconds (9.0-12.0)
[2019-04-03 06:21] LABS: Albumin Level 3.5 gm/dl (3.4-5.0); BUN Creatinine Ratio 14.2 (10-20); Calcium 8.7 mg/dl (8.5-10.1); Creatinine Clr Calc Pharmacy 99.7 ml/min; Est GFR (African American) 141.7; Est GFR (Non-African American) 122.2; Magnesium 1.8 mg/dl (1.8-2.4); Potassium 4.1 mmol/L (3.5-5.1)
[2019-04-03 06:45] LABS: Albumin Globulin Ratio 1.5 (0.9-2); Bilirubin,Total 1.1 mg/dl (0.2-1); Globulin 2.4 gm/dl (2.5-4.0); Phosphorus 2.2 mg/dl (2.5-4.9); Total Protein 5.9 gm/dl (6.4-8.2)
[2019-04-03 12:10] LABS: INR 1.7 (0.9-1.1); Prothrombin Time 16.8 Seconds (9.0-12.0)
[2019-04-03 12:27] LABS: Albumin Globulin Ratio 1.4 (0.9-2); Albumin Level 3.8 gm/dl (3.4-5.0); BUN Creatinine Ratio 12.7 (10-20); Bilirubin,Total 0.9 mg/dl (0.2-1); Calcium 9.5 mg/dl (8.5-10.1); Creatinine Clr Calc Pharmacy 82.2 ml/min; Est GFR (African American) 113.1; Est GFR (Non-African American) 97.6; Globulin 2.8 gm/dl (2.5-4.0); Potassium 4.2 mmol/L (3.5-5.1); Total Protein 6.6 gm/dl (6.4-8.2)
[2019-04-03 12:37] LABS: Bilirubin Direct 0.2 mg/dl (0-0.2)
--- NOTE | 2019-04-03 14:11 | Hospitalist Progress Note ---
Date of Service April 03, 2019 Assessment & Plan (1) Tylenol overdose: Intentional/suicidal. - Started N-acetylcysteine on presentation. - Psychiatry recommending inpatient psychiatric stay after medically cleared. - Unfortunately, his LFTs are still getting higher. AST/ALT up to 1000s today. However, INR/Tbili coming down. Still on NAC protocol. - Discussing every day with poison control. (2) Right upper quadrant abdominal pain: Resolved (3) Nausea and vomiting: Likely secondary to Tylenol toxicity and antihistaminic and Tylenol PM. - Improving (4) Nicotine dependence: Declined nicotine patch. - Monitor (5) Liver function abnormality: Due to acetaminophen. - As above (6) Eating disorder: History of. - Per psychiatry - Discussed with hotel casino floorperson on 04/02. - Will work with patient regarding his exercise pre-meals. (7) DVT prophylaxis: SCDs - Low DVT risk per admission calculator Subjective Feeling better than ever today from a mental standpoint. No nausea. No emesis. Reports no fevers/chills, chest pain, shortness of breath, abdominal pain, nausea, or vomiting. Physical Exam Constitutional: WD/WN, vitals as above Eyes: EOM intact bilaterally; no conjunctival abnormality ENMT: external ear and nose normal, oropharynx normal Neck: trachea midline, no thyromegaly normal visual inspection Respiratory: normal respiratory effort, lungs clear to auscultation no respiratory distress Cardiovascular: Rate/Rhythm: regular rhythm and + bradycardic Heart Sounds: normal S1 and normal S2 Vessels: no JVD Extremities: no edema Gastrointestinal (Abdomen): Inspection/Auscultation: abdomen normal to inspection; abdomen not distended Musculoskeletal: no cyanosis or clubbing, extremities motor strength 5/5 Skin: no rashes, warm and dry Neurologic: moves all extremities and awake Psychiatric: Orientation: alert, oriented to person and cooperative Results & Data Vital Signs (Past 12 Hours) Vital Signs Temp Pulse Resp BP Pulse Ox 04/03/19 12:31 36.6 C 47 L 18 122/75 99 PG Care Time/CCT Total # of Minutes Spent Total Time Spent with Patient: Total time spent is greater than 50% in coordination of care (as documented) at patient's floor/unit and/or counseling patient: (1) Tylenol overdose Encounter type: initial encounter Injury intent: intentional self-harm Qualified Code(s): T39.1X2A - Poisoning by 4-Aminophenol derivatives, intentional self-harm, initial encounter (2) Nausea and vomiting Vomiting Intractability: unspecified Vomiting type: unspecified Qualified Code(s): R11.2 - Nausea with vomiting, unspecified
[2019-04-03] MEDS: CALCIUM CARBONATE 500 MG CHEWABLE TAB PO PRN (20:19)
[2019-04-04 05:54] LABS: Hematocrit (blood only) 40.3 % (42-52); Hemoglobin 14.1 g/dL (14.0-18.0); Mean Corpuscular Hemoglobin 30.7 pg (25-34); Mean Corpuscular Volume 87.6 fL (80-100); Platelet Count 148 K/uL (130-400); RDW Coefficient of Variation 14.4 % (11.5-14.5); RDW Standard Deviation 46.6 fL (36.4-46.3); White Blood Count 7.83 K/uL (4.8-10.8)
[2019-04-04 06:02] LABS: INR 1.7 (0.9-1.1); Prothrombin Time 16.5 Seconds (9.0-12.0)
[2019-04-04 06:34] LABS: Albumin Level 3.6 gm/dl (3.4-5.0); BUN Creatinine Ratio 19.4 (10-20); Blood Urea Nitrogen 14 mg/dl (7-18); Calcium 8.7 mg/dl (8.5-10.1); Carbon Dioxide 23 mmol/L (21-32); Chloride 105 mmol/L (98-107); Creatinine Clr Calc Pharmacy 119.9 ml/min; Est GFR (African American) > 150.0; Est GFR (Non-African American) 131.9; Glucose 88 mg/dl (70-99); Sodium 139 mmol/L (136-145)
[2019-04-04 07:03] LABS: Alanine Aminotransferase 9432 U/L (12-78); Albumin Globulin Ratio 1.5 (0.9-2); Alkaline Phosphatase 147 U/L (45-117); Aspartate Aminotransferase 9121 U/L (15-37); Bilirubin,Total 0.4 mg/dl (0.2-1); Globulin 2.4 gm/dl (2.5-4.0)
[2019-04-04] MEDS ORDERED: ACETYLCYSTEINE IV ONE (09:30)
[2019-04-04] MEDS ORDERED: DEXTROSE 5% IV ONE (09:30)
--- NOTE | 2019-04-04 12:47 | Hospitalist Progress Note ---
Date of Service April 04, 2019 Assessment & Plan (1) Tylenol overdose: Intentional/suicidal. - Started N-acetylcysteine on presentation. - Psychiatry recommending inpatient psychiatric stay after medically cleared. - Unfortunately, his LFTs are still getting higher. AST/ALT up to 9000s today. However, INR/Tbili stable/coming down. Still on NAC protocol per [place]. - Discussed today with poison control - No indication for transfer at this time. (2) Right upper quadrant abdominal pain: Resolved (3) Nausea and vomiting: Likely secondary to Tylenol toxicity and antihistaminic and Tylenol PM. - Improving (4) Nicotine dependence: Declined nicotine patch. - Monitor (5) Liver function abnormality: Due to acetaminophen. - As above (6) Eating disorder: History of. - Per psychiatry - Discussed with signing teacher on 04/02. - Working with patient regarding his exercise pre-meals - Limiting to 30 minutes/day. (7) DVT prophylaxis: SCDs - Low DVT risk per admission calculator Subjective Spirit is somewhat down today given the fact that he will likely be with us over the weekend. He is accepting of this though. Lower energy. Reports no fevers/chills, chest pain, shortness of breath, abdominal pain, nausea, or vomiting. Physical Exam Constitutional: WD/WN, vitals as above Eyes: EOM intact bilaterally; no conjunctival abnormality ENMT: external ear and nose normal, oropharynx normal Neck: trachea midline, no thyromegaly normal visual inspection Respiratory: normal respiratory effort, lungs clear to auscultation no respiratory distress Cardiovascular: Rate/Rhythm: regular rhythm and + bradycardic Heart Sounds: normal S1 and normal S2 Vessels: no JVD Extremities: no edema Gastrointestinal (Abdomen): Inspection/Auscultation: abdomen normal to inspection; abdomen not distended Musculoskeletal: no cyanosis or clubbing, extremities motor strength 5/5 Skin: no rashes, warm and dry Neurologic: moves all extremities and awake Psychiatric: Orientation: alert, oriented to person and cooperative Results & Data Vital Signs (Past 12 Hours) Vital Signs Temp Pulse Resp BP Pulse Ox 04/04/19 07:24 36.5 C 62 18 117/76 100 PG Care Time/CCT Total # of Minutes Spent Total Time Spent with Patient: Total time spent is greater than 50% in coordination of care (as documented) at patient's floor/unit and/or counseling patient: (1) Tylenol overdose Encounter type: initial encounter Injury intent: intentional self-harm Qualified Code(s): T39.1X2A - Poisoning by 4-Aminophenol derivatives, intentional self-harm, initial encounter (2) Nausea and vomiting Vomiting Intractability: unspecified Vomiting type: unspecified Qualified Code(s): R11.2 - Nausea with vomiting, unspecified
[2019-04-04 22:29] LABS: INR 1.3 (0.9-1.1); Prothrombin Time 13.2 Seconds (9.0-12.0)
[2019-04-04 22:37] LABS: Albumin Level 3.5 gm/dl (3.4-5.0); BUN Creatinine Ratio 26.4 (10-20); Blood Urea Nitrogen 19 mg/dl (7-18); Calcium 8.6 mg/dl (8.5-10.1); Carbon Dioxide 28 mmol/L (21-32); Chloride 105 mmol/L (98-107); Creatinine Clr Calc Pharmacy 119.9 ml/min; Est GFR (African American) > 150.0; Est GFR (Non-African American) 131.9; Glucose 96 mg/dl (70-99); Potassium 3.8 mmol/L (3.5-5.1); Sodium 139 mmol/L (136-145)
[2019-04-04 22:58] LABS: Alanine Aminotransferase 7922 U/L (12-78); Albumin Globulin Ratio 1.4 (0.9-2); Alkaline Phosphatase 148 U/L (45-117); Aspartate Aminotransferase 2415 U/L (15-37); Bilirubin,Total 0.8 mg/dl (0.2-1); Globulin 2.5 gm/dl (2.5-4.0)
--- NOTE | 2019-04-05 13:53 | Hospitalist Progress Note ---
Date of Service April 05, 2019 Assessment & Plan (1) Tylenol overdose: Intentional/suicidal. - Started N-acetylcysteine on presentation. - LFTs peaked at 9100/9400. Tbili remained largely normal. INR peaked at 1.8. Down to 1.3 today. - No more NAC per poison control - Psychiatry recommending inpatient psychiatric stay after medically cleared. (2) Right upper quadrant abdominal pain: Resolved (3) Nausea and vomiting: Likely secondary to Tylenol toxicity and antihistaminic and Tylenol PM. - Resolved (4) Nicotine dependence: Declined nicotine patch. - Monitor (5) Liver function abnormality: Due to acetaminophen. - As above (6) Eating disorder: History of. - Per psychiatry - Discussed with tattoo and body artist on 04/02. - Working with patient regarding his exercise pre-meals - Limiting to 30 minutes/day. (7) DVT prophylaxis: SCDs - Low DVT risk per admission calculator Subjective No major concerns today. Still antzy. He likes to play video games. Reports no fevers/chills, chest pain, shortness of breath, abdominal pain, nausea, or vomiting. Physical Exam Constitutional: WD/WN, vitals as above Eyes: EOM intact bilaterally; no conjunctival abnormality ENMT: external ear and nose normal, oropharynx normal Neck: trachea midline, no thyromegaly normal visual inspection Respiratory: normal respiratory effort, lungs clear to auscultation no respiratory distress Cardiovascular: Rate/Rhythm: regular rhythm and + bradycardic Heart Sounds: normal S1 and normal S2 Vessels: no JVD Extremities: no edema Gastrointestinal (Abdomen): Inspection/Auscultation: abdomen normal to inspe ction; abdomen not distended Musculoskeletal: no cyanosis or clubbing, extremities motor strength 5/5 Skin: no rashes, warm and dry Neurologic: moves all extremities and awake Psychiatric: Orientation: alert, oriented to person and cooperative Results & Data Vital Signs (Past 12 Hours) Vital Signs Temp Pulse Resp BP Pulse Ox 04/05/19 06:30 36.4 C L 56 L 20 114/75 98 PG Care Time/CCT Total # of Minutes Spent Total Time Spent with Patient: Total time spent is greater than 50% in coordination of care (as documented) at patient's floor/unit and/or counseling patient: (1) Tylenol overdose Encounter type: initial encounter Injury intent: intentional self-harm Qualified Code(s): T39.1X2A - Poisoning by 4-Aminophenol derivatives, intentional self-harm, initial encounter (2) Nausea and vomiting Vomiting Intractability: unspecified Vomiting type: unspecified Qualified Code(s): R11.2 - Nausea with vomiting, unspecified
[2019-04-06 06:15] LABS: INR 1.1 (0.9-1.1)
[2019-04-06 06:53] LABS: Albumin Level 3.3 gm/dl (3.4-5.0); Aspartate Aminotransferase 437 U/L (15-37); BUN Creatinine Ratio 21.2 (10-20); Blood Urea Nitrogen 16 mg/dl (7-18); Calcium 8.5 mg/dl (8.5-10.1); Carbon Dioxide 24 mmol/L (21-32); Chloride 109 mmol/L (98-107); Creatinine Clr Calc Pharmacy 122.1 ml/min; Est GFR (African American) > 150.0; Est GFR (Non-African American) 131.1; Glucose 80 mg/dl (70-99); Potassium 3.8 mmol/L (3.5-5.1); Sodium 140 mmol/L (136-145)
[2019-04-06 07:26] LABS: Alanine Aminotransferase 4742 U/L (12-78); Albumin Globulin Ratio 1.3 (0.9-2); Alkaline Phosphatase 136 U/L (45-117); Bilirubin,Total 0.7 mg/dl (0.2-1); Globulin 2.6 gm/dl (2.5-4.0); Total Protein 5.9 gm/dl (6.4-8.2)
--- NOTE | 2019-04-06 17:16 | Hospitalist Progress Note ---
Date of Service April 06, 2019 Assessment & Plan (1) Tylenol overdose: Intentional/suicidal. - Started N-acetylcysteine on presentation. - LFTs peaked at 9100/9400. Tbili remained largely normal. INR peaked at 1.8. Down to 1.1 today. - No more NAC per poison control - Psychiatry recommending inpatient psychiatric stay after medically cleared. Likely Sunday. (2) Right upper quadrant abdominal pain: Resolved (3) Nausea and vomiting: Likely secondary to Tylenol toxicity and antihistaminic and Tylenol PM. - Resolved (4) Nicotine dependence: Declined nicotine patch. - Monitor (5) Liver function abnormality: Due to acetaminophen. - As above (6) Eating disorder: History of. - Per psychiatry - Discussed with computer sciences professor on 04/02. - Working with patient regarding his exercise pre-meals - Limiting to 30 minutes/day. (7) DVT prophylaxis: SCDs - Low DVT risk per admission calculator Subjective Doing well today. No major concerns. Reports no fevers/chills, chest pain, shortness of breath, abdominal pain, nausea, or vomiting. Physical Exam Constitutional: WD/WN, vitals as above Eyes: EOM intact bilaterally; no conjunctival abnormality ENMT: external ear and nose normal, oropharynx normal Neck: trachea midline, no thyromegaly normal visual inspection Respiratory: normal respiratory effort, lungs clear to auscultation no respiratory distress Cardiovascular: Rate/Rhythm: regular rhythm and + bradycardic Heart Sounds: normal S1 and normal S2 Vessels: no JVD Extremities: no edema Gastrointestinal (Abdomen): Inspection/Auscultation: abdomen normal to inspection; abdomen not distended Musculoskeletal: no cyanosis or clubbing, extremities motor strength 5/5 Skin: no rashes, warm and dry Neurologic: moves all extremities and awake Psychiatric: Orientation: alert, oriented to person and cooperative Results & Data Vital Signs (Past 12 Hours) Vital Signs Temp Pulse Resp BP BP Pulse Ox 04/06/19 14:58 36.6 C 58 L 17 118/58 L 100 04/06/19 12:15 149/82 H 04/06/19 07:08 36.4 C L 60 18 113/72 100 PG Care Time/CCT Total # of Minutes Spent Total Time Spent with Patient: Total time spent is greater than 50% in coordination of care (as documented) at patient's floor/unit and/or counseling patient: (1) Tylenol overdose Encounter type: initial encounter Injury intent: intentional self-harm Qualified Code(s): T39.1X2A - Poisoning by 4-Aminophenol derivatives, intentional self-harm, initial encounter (2) Nausea and vomiting Vomiting Intractability: unspecified Vomiting type: unspecified Qualified Code(s): R11.2 - Nausea with vomiting, unspecified
[2019-04-07 06:30] LABS: Albumin Level 3.6 gm/dl (3.4-5.0); BUN Creatinine Ratio 18.1 (10-20); Calcium 8.8 mg/dl (8.5-10.1); Est GFR (African American) 143.7; Potassium 4.2 mmol/L (3.5-5.1)
[2019-04-07 06:42] LABS: Albumin Globulin Ratio 1.4 (0.9-2); Bilirubin,Total 0.6 mg/dl (0.2-1); Globulin 2.6 gm/dl (2.5-4.0); Total Protein 6.2 gm/dl (6.4-8.2)
--- NOTE | 2019-04-07 09:18 | Hospitalist Progress Note ---
Date of Service April 07, 2019 Assessment & Plan (1) Tylenol overdose: Intentional/suicidal. Denies suicidal ideation thereafter. Started N-acetylcysteine on presentation. LFTs peaked at 9100/9400. Tbili remained largely normal. INR peaked at 1.8. Down to 1.1 yesterday. No more NAC per poison control Psychiatry recommending inpatient psychiatric stay after medically cleared. Likely Sunday. (2) Right upper quadrant abdominal pain: Resolved (3) Nausea and vomiting: Likely secondary to Tylenol toxicity and antihistaminic and Tylenol PM. Resolved (4) Nicotine dependence: Declined nicotine patch. Monitor (5) Liver function abnormality: Due to acetaminophen. As above (6) Eating disorder: History of. Per psychiatry Discussed with cloth colors examiner on 04/02. Working with patient regarding his exercise pre-meals - Limiting to 30 minutes/day. (7) DVT prophylaxis: SCDs - Low DVT risk per admission calculator Subjective Patient seen and examined at the bedside.No acute event over night. Pt is in elated mood and now stating that he is planing to join [employer].Pt does not have plans to stay inpatient at [facility], he is requesting to be discharged home and follow up with outpatient psychiatry.Spoke to pt's dad over the phone and explained to him that pt needs to stay unil his liver enzymes are improved. Pt denies fever, chills, chest pain, SOB, abdominal pain, frequency or urgency. Review of Systems Review of Systems: All systems reviewed & are unremarkable except as noted in HPI & below Physical Exam Constitutional: WD/WN, vitals as above Eyes: EOM intact bilaterally; no conjunctival abnormality ENMT: external ear and nose normal, oropharynx normal Neck: trachea midline, no thyromegaly normal visual inspection Respiratory: normal respiratory effort, lungs clear to auscultation no respiratory distress Cardiovascular: Rate/Rhythm: regular rhythm and + bradycardic Heart Sounds: normal S1 and normal S2 Vessels: no JVD Extremities: no edema Gastrointestinal (Abdomen): Inspection/Auscultation: abdomen normal to inspection; abdomen not distended Musculoskeletal: no cyanosis or clubbing, extremities motor strength 5/5 Skin: no rashes, warm and dry Neurologic: moves all extremities and awake Psychiatric: Orientation: alert, oriented x 3, oriented to person and cooperative Apperance: appropriately dressed (casually, in t-shirt and gym shorts), appropriately groomed and appeared stated age Eye Contact: good eye contact Motor Behavior: steady gait and station and no abnormal motor movements Speech: normal rate/rhythm/volume of speech Affect: mood congruent with affect Mood: + depressed mood ("it's been mostly low mood all the time") Thought Process: goal directed thought process, linear/logical thought process, clear/coherent thought process and thought association intact Thought Content: reality based without delusions and + self deprecation (consistent with diagnosis of anorexia); no hopelessness (intermittent hopelessness, but none presently) Suicidal Thoughts: denies suicidal thoughts (at present), denies suicidal plan and denies suicidal intent Homicidal Thoughts: denies homicidal thoughts Hallucinations: no auditory hallucinations and no visual hallucinations Cognition: attention grossly intact and language grossly intact Insight: + fair insight Judgement: + fair judgement elated mood Results & Data Vital Signs (Past 12 Hours) Vital Signs Temp Pulse Resp BP Pulse Ox 04/07/19 06:54 36.6 C 78 20 125/74 98 04/06/19 23:35 36.3 C L 69 124/75 100 PG Care Time/CCT Total # of Minutes Spent Total Time Spent with Patient: Total time spent is greater than 50% in coordination of care (as documented) at patient's floor/unit and/or counseling patient: (1) Tylenol overdose Encounter type: initial encounter Injury intent: intentional self-harm Qualified Code(s): T39.1X2A - Poisoning by 4-Aminophenol derivatives, intentional self-harm, initial encounter (2) Nausea and vomiting Vomiting Intractability: unspecified Vomiting type: unspecified Qualified Code(s): R11.2 - Nausea with vomiting, unspecified
[2019-04-08 07:32] LABS: Hematocrit (blood only) 40.9 % (42-52); Hemoglobin 14.4 g/dL (14.0-18.0); Mean Corpuscular Hemoglobin 31.2 pg (25-34); Mean Corpuscular Volume 88.7 fL (80-100); Mean Platelet Volume 9.5 fL (7.4-10.4); Platelet Count 205 K/uL (130-400); RDW Coefficient of Variation 14.5 % (11.5-14.5); RDW Standard Deviation 46.9 fL (36.4-46.3); Red Blood Count 4.61 M/uL (4.7-6.1); White Blood Count 5.14 K/uL (4.8-10.8)
[2019-04-08 07:34] LABS: Mean Corpuscular Hgb Conc 35.2 g/dL (32-36)
[2019-04-08 07:44] LABS: BUN Creatinine Ratio 17.6 (10-20); Calcium 9.7 mg/dl (8.5-10.1); Creatinine Clr Calc Pharmacy 89.4 ml/min; Est GFR (African American) 124.1; Est GFR (Non-African American) 107.1; Potassium 4.8 mmol/L (3.5-5.1)
[2019-04-08 07:52] LABS: Albumin Globulin Ratio 1.3 (0.9-2); Bilirubin,Total 0.7 mg/dl (0.2-1); Globulin 3.1 gm/dl (2.5-4.0); Total Protein 7.1 gm/dl (6.4-8.2)
[2019-04-08] MEDS: SODIUM CHLORIDE 0.9% 1000ML 1,000 ML IV SCH ×2 (09:41→23:12)
[2019-04-08] MEDS ORDERED: Nursing to Pharmacy Communication ONE (15:08)
[2019-04-08] MEDS ORDERED: SODIUM CHLORIDE 0.9% 1000ML 1,000 ML IV SCH (15:15)
--- NOTE | 2019-04-08 19:02 | Hospitalist Progress Note ---
Date of Service April 08, 2019 Assessment & Plan (1) Tylenol overdose: Intentional/suicidal. Denies suicidal ideation thereafter. Started N-acetylcysteine on presentation. LFTs peaked at 9100/9400. Tbili remained largely normal. INR peaked at 1.8. Down to 1.1 yesterday. No more NAC per poison control Psychiatry recommending inpatient psychiatric stay after medically cleared. Likely Sunday. (2) Right upper quadrant abdominal pain: Resolved (3) Nausea and vomiting: Likely secondary to Tylenol toxicity and antihistaminic and Tylenol PM. Resolved (4) Nicotine dependence: Declined nicotine patch. Monitor (5) Liver function abnormality: Due to acetaminophen. As above (6) Eating disorder: History of. Per psychiatry Discussed with energy efficiency engineer on 04/02. Working with patient regarding his exercise pre-meals - Limiting to 30 minutes/day. (7) DVT prophylaxis: SCDs - Low DVT risk per admission calculator Subjective Patient seen and examined at the bedside.No acute event over night.Pt does not have plans to stay inpatient at [facility], he is requesting to be discharged home and follow up with outpatient psychiatry.Liver enzymes are slowly improving. Spoke to pt's dad over the phone again and explained to him that pt needs to stay unil his liver enzymes are improved. Pt denies fever, chills, chest pain, SOB, abdominal pain, frequency or urgency. Physical Exam Constitutional: WD/WN, vitals as above Eyes: EOM intact bilaterally; no conjunctival abnormality ENMT: external ear and nose normal, oropharynx normal Neck: trachea midline, no thyromegaly normal visual inspection Respiratory: normal respiratory effort, lungs clear to auscultation no respiratory distress Cardiovascular: Rate/Rhythm: regular rhythm and + bradycardic Heart Sounds: normal S1 and normal S2 Vessels: no JVD Extremities: no edema Gastrointestinal (Abdomen): Inspection/Auscultation: abdomen normal to inspection; abdomen not distended Musculoskeletal: no cyanosis or clubbing, extremities motor strength 5/5 Skin: no rashes, warm and dry Neurologic: moves all extremities and awake Psychiatric: Orientation: alert, oriented x 3, oriented to person and cooperative Apperance: appropriately dressed (casually, in t-shirt and gym shorts), appropriately groomed and appeared stated age Eye Contact: good eye contact Motor Behavior: steady gait and station and no abnormal motor movements Speech: normal rate/rhythm/volume of speech Affect: mood congruent with affect Mood: + depressed mood ("it's been mostly low mood all the time") Thought Process: goal directed thought process, linear/logical thought process, clear/coherent thought process and thought association intact Thought Content: reality based without delusions and + self deprecation (consistent with diagnosis of anorexia); no hopelessness (intermittent hopelessness, but none presently) Suicidal Thoughts: denies suicidal thoughts (at present), denies suicidal plan and denies suicidal intent Homicidal Thoughts: denies homicidal thoughts Hallucinations: no auditory hallucinations and no visual hallucinations Cognition: attention grossly intact and language grossly intact Insight: + fair insight Judgement: + fair judgement Results & Data Vital Signs (Past 12 Hours) Vital Signs Temp Pulse Resp BP Pulse Ox 04/08/19 07:05 36.6 C 81 18 118/81 97 PG Care Time/CCT Total # of Minutes Spent Total Time Spent with Patient: Total time spent is greater than 50% in coordination of care (as documented) at patient's floor/unit and/or counseling patient: (1) Tylenol overdose Encounter type: initial encounter Injury intent: intentional self-harm Qualified Code(s): T39.1X2A - Poisoning by 4-Aminophenol derivatives, intentional self-harm, initial encounter (2) Nausea and vomiting Vomiting Intractability: unspecified Vomiting type: unspecified Qualified Code(s): R11.2 - Nausea with vomiting, unspecified
[2019-04-09 06:35] LABS: Basophils # (auto) 0.01 K/uL (0-0.2); Basophils % (auto) 0.2 %; Eosinophils # (auto) 0.02 K/uL (0-0.5); Eosinophils % (auto) 0.4 %; Hematocrit (blood only) 44.4 % (42-52); Hemoglobin 15.6 g/dL (14.0-18.0); Immature Granulocytes # (auto) 0.01 K/uL (0.00-0.02); Immature Granulocytes % (auto) 0.2 %; Lymphocytes # (auto) 1.24 K/uL (1.2-3.4); Lymphocytes % (auto) 26.3 %; Mean Corpuscular Hemoglobin 31.2 pg (25-34); Mean Corpuscular Hgb Conc 35.1 g/dL (32-36); Mean Corpuscular Volume 88.8 fL (80-100); Mean Platelet Volume 8.8 fL (7.4-10.4); Monocytes % (auto) 10.6 %; Neutrophils # (auto) 2.94 K/uL (1.4-6.5); Neutrophils % (auto) 62.3 %; Platelet Count 241 K/uL (130-400); RDW Coefficient of Variation 14.7 % (11.5-14.5); RDW Standard Deviation 47.3 fL (36.4-46.3); White Blood Count 4.72 K/uL (4.8-10.8)
[2019-04-09 07:12] LABS: Albumin Level 4.4 gm/dl (3.4-5.0); BUN Creatinine Ratio 17.8 (10-20); Calcium 9.5 mg/dl (8.5-10.1); Creatinine Clr Calc Pharmacy 89.4 ml/min; Est GFR (African American) 124.1; Est GFR (Non-African American) 107.1
[2019-04-09 07:18] LABS: Albumin Globulin Ratio 1.4 (0.9-2); Bilirubin,Total 0.7 mg/dl (0.2-1); Globulin 3.1 gm/dl (2.5-4.0); Total Protein 7.5 gm/dl (6.4-8.2)
--- NOTE | 2019-04-09 14:14 | Hospitalist Progress Note ---
Date of Service April 09, 2019 Assessment & Plan (1) Tylenol overdose: Intentional/suicidal. Denies suicidal ideation thereafter. Started N-acetylcysteine on presentation. LFTs peaked at 9100/9400. Tbili remained largely normal. INR peaked at 1.8. Down to 1.1 yesterday. Liver enzymes slowly trending down. Had a family meeting with patient's father and he agrees that patient should be transferred to the psych unit after he is medically cleared. No more NAC per poison control Psychiatry recommending inpatient psychiatric stay after medically cleared. Likely Sunday. (2) Right upper quadrant abdominal pain: Resolved (3) Nausea and vomiting: Likely secondary to Tylenol toxicity and antihistaminic and Tylenol PM. Resolved (4) Nicotine dependence: Declined nicotine patch. Monitor (5) Liver function abnormality: Due to acetaminophen. As above (6) Eating disorder: History of. Per psychiatry Discussed with resolution specialist on 04/02. Working with patient regarding his exercise pre-meals - Limiting to 30 minutes/day. (7) DVT prophylaxis: SCDs - Low DVT risk per admission calculator Subjective Patient seen and examined at the bedside.No acute event over night.We had a family meeting with patient father and patient today and it was pretty clear that family agrees with the recommendation for the patient to go to psychiatric unit after he is medically cleared.Liver enzymes are slowly improving. Pt denies fever, chills, chest pain, SOB, abdominal pain, frequency or urgency. Review of Systems Review of Systems: All systems reviewed & are unremarkable except as noted in HPI & below Physical Exam Constitutional: WD/WN, vitals as above Eyes: EOM intact bilaterally; no conjunctival abnormality ENMT: external ear and nose normal, oropharynx normal Neck: trachea midline, no thyromegaly normal visual inspection Respiratory: normal respiratory effort, lungs clear to auscultation no respiratory distress Cardiovascular: Rate/Rhythm: regular rhythm and + bradycardic Heart Sounds: normal S1 and normal S2 Vessels: no JVD Extremities: no edema Gastrointestinal (Abdomen): Inspection/Auscultation: abdomen normal to inspection; abdomen not distended Musculoskeletal: no cyanosis or clubbing, extremities motor strength 5/5 Skin: no rashes, warm and dry Neurologic: moves all extremities and awake Psychiatric: Orientation: alert, oriented x 3, oriented to person and cooperative Apperance: appropriately dressed (casually, in t-shirt and gym shorts), appropriately groomed and appeared stated age Eye Contact: good eye contact Motor Behavior: steady gait and station and no abnormal motor movements Speech: normal rate/rhythm/volume of speech Affect: mood congruent with affect Mood: + depressed mood ("it's been mostly low mood all the time") Thought Process: goal directed thought process, linear/logical thought process, clear/coherent thought process and thought association intact Thought Content: reality based without delusions and + self deprecation (consistent with diagnosis of anorexia); no hopelessness (intermittent hopelessness, but none presently) Suicidal Thoughts: denies suicidal thoughts (at present), denies suicidal plan and denies suicidal intent Homicidal Thoughts: denies homicidal thoughts Hallucinations: no auditory hallucinations and no visual hallucinations Cognition: attention grossly intact and language grossly intact Insight: + fair insight Judgement: + fair judgement Results & Data Vital Signs (Past 12 Hours) Vital Signs Temp Pulse Resp BP Pulse Ox 04/09/19 07:19 36.6 C 80 16 133/75 99 PG Care Time/CCT Total # of Minutes Spent Total Time Spent with Patient: Total time spent is greater than 50% in coordination of care (as documented) at patient's floor/unit and/or counseling patient: (1) Tylenol overdose Encounter type: initial encounter Injury intent: intentional self-harm Qualified Code(s): T39.1X2A - Poisoning by 4-Aminophenol derivatives, intentional self-harm, initial encounter (2) Nausea and vomiting Vomiting Intractability: unspecified Vomiting type: unspecified Qualified Code(s): R11.2 - Nausea with vomiting, unspecified
--- NOTE | 2019-04-09 15:11 | Psychiatric Progress Note ---
Date of Service April 09, 2019 Impression / Recommendations Impression 19-year-old male admitted 03/31/2019 after presenting to the ED status post intentional Tylenol overdose. It was reported that the patient took between 32 and 40 Tylenol around 6 AM on 03/31/2019. Patient was reportedly found around 1530 by his father, "covered in vomit." Patient was brought to the ED for medical treatment and admitted to intentional overdose of medication. Patient has a long history of anorexia nervosa, depression, and OCD. He had recently been discharged from a facility in [place], where he received intensive inpatient treatment for his eating disorder for a period of 6 months. Ps ychiatric consultation was requested to evaluate the patient for intentional overdose. Patient is cooperative with interview, and father provides collateral with patient's permission. Patient does endorse fluctuations of mood, but states he has been feeling predominantly depressed. Patient does admit that his overdose was a response to an episode of binge eating the night before. Patient admits that he felt guilty the next morning his suicidal ideation and. Pt denies SI since admission, but has been reminded that inpatient psychiatric treatment is still being recommended after his significant overdose. Due to the significance of the patient's intentional overdose, would not recommend initiation of new psychiatric medications until he is deemed medically cleared and liver enzymes are in a more reasonable range. Pt is reportedly prescribed atomoxetine 40mg daily on an outpatient basis; however, admits he does not take the medication regularly. Agree with holding medications until medically cleared - defer restart and/or adjustment of psychiatric medications to accepting behavioral health facility. Appreciate the opportunity to participate in the care of this patient, please reach out to our service with any questions or additional needs from the primary team. Risk Factors Assessment Male: Yes : Yes Do You Have Access To A Gun?: No Mental Health Diagnoses: Yes Substance Use Disorders: Yes (regular marijuana use) Previous Attempt: No Family History of Suicide: No Previous Psychiatric Hospitalization: Yes (Multiple inpatient admissions for treatment of anorexia) Hopelessness: Yes (Intermittently) Protective Factors Assessment : No Responsible for Young Children: No Employed: Yes Stable Relationships: No Supportive Family: Yes Good Rapport with Provider: Yes Interval History Identifying Information 19-year-old male admitted medically on 03/31/2019 after presenting to the ED status post intentional Tylenol overdose. It is reported the patient took about 40 Tylenol around 6 AM the morning of presentation. Patient did admit that his overdose was in response to mood concerns and not feeling happy. It is reported the patient has no prior history of suicide attempts. Psychiatric consultation was requested to evaluate patient after the suicide attempt. Chief Complaint "I'm pretty celis good. At this point I'm just counting my blessings, thankful I'm still alive." Review of Systems Notes Constitutional: denied Cardiovascular: denied Respiratory: denied Gastrointestinal: denied Neurological: denied Psychiatric: denies symptoms other than stated above Total of at least 10 systems reviewed, pertinent positives as above and in HPI. Subjective Subjective Patient's case was reviewed and discussed with psychiatrist and psychiatric nurse liaison. Pt was seen today for follow-up visit to address any urgent psychiatric needs. Pt is observed to be playing video games upon this provider's entry into room (a tool that has been discussed in order to reduce compulsory exercising patient had been engaging in). He quickly turned off his games in order to speak with this provider. He states that he is "pretty celis good" today, admitting that he is beginning to recognize the severity of his actions and is "thankful to be alive, I'm just thanking God and counting my blessings." Pt reports a motivation to get on a healthier path and was asked how he plans to initiate this. Pt states, "I think with medications, I know I'm very impulsive and I think I need them." He shares that he gets his mind set on a goal and "I think it's the best idea ever, I'm really directed by my ego. But I realize I need to follow the direction of my parents and of God and realize I'm not as independent as I think." Pt denies continued SI, but is able to provide understanding as to why inpatient psychiatric admission is still being recommended. He does ask general questions about his anticipated length of stay - and seemed to be calmer after hearing that the average length of stay on our unit is about 4-6 days (depending on the case of course). Pt denies other needs at this time. Physical Exam Psychiatric Orientation: alert, oriented x 3 and cooperative (very pleasant, responding with "yes ma'am" frequently) Apperance: appropriately dressed (casually, in t-shirt, gym shorts, and tennis shoes) and appropriately groomed; + did not appear stated age (appears younger than stated age, short stature) Eye Contact: good eye contact Motor Behavior: + psychomotor agitation (restless, shifting weight frequently and pacing during conversation) Speech: normal rate/rhythm/volume of speech (somewhat rapid) Affect: euthymic affect Mood: no depressed mood (denies mood concerns presently, but admits to history of impulsivity) Thought Process: goal directed thought process and clear/coherent thought process Thought Content: reality based without delusions; no hopelessness and no worthlessness Suicidal Thoughts: denies suicidal thoughts and denies suicidal intent Homicidal Thoughts: denies homicidal thoughts Hallucinations: no auditory hallucinations and no visual hallucinations Cognition: attention grossly intact and language grossly intact Insight: + fair insight Judgement: + fair judgement Vital Signs (Past 24 Hours) Last Vital Signs Temp 36.6 C 04/09/19 07:19 Pulse 80 04/09/19 07:19 Resp 16 04/09/19 07:19 BP 133/75 04/09/19 07:19 Pulse Ox 99 04/09/19 07:19 Results & Data Laboratory Results Laboratory Results - last 24 hr 04/09/19 04/09/19 06:19 06:19 WBC 4.72 L RBC 5.00 Hgb 15.6 Hct 44.4 MCV 88.8 MCH 31.2 MCHC 35.1 RDW Std Deviation 47.3 H RDW Coeff of Adrienne 14.7 H Plt Count 241 MPV 8.8 Immature Gran % (Auto) 0.2 Neut % (Auto) 62.3 Lymph % (Auto) 26.3 [place] % (Auto) 10.6 Eos % (Auto) 0.4 Baso % (Auto) 0.2 Immature Gran # (Auto) 0.01 Neut # (Auto) 2.94 Lymph # (Auto) 1.24 [place] # (Auto) 0.50 Eos # (Auto) 0.02 Baso # (Auto) 0.01 Sodium 141 Potassium 4.0 D Chloride 109 H Carbon Dioxide 24 Anion Gap 9.0 BUN 18 Creatinine 1.00 Est Cr Clr Drug Dosing 89.4 Est GFR ( Amer) 124.1 Est GFR (Non-Af Amer) 107.1 BUN/Creatinine Ratio 17.8 Glucose 80 Calcium 9.5 Total Bilirubin 0.7 AST 106 H ALT 3198 H Alkaline Phosphatase 168 H Total Protein 7.5 Albumin 4.4 Globulin 3.1 Albumin/Globulin Ratio 1.4 Current Inpatient Medications Current Inpatient Medications: Current Inpatient Medications Calcium Carbonate (Tums) 500 mg PO Q4H PRN PRN Reason: Indigestion Stop: 05/01/19 13:24 Last Admin: 04/03/19 20:19 Dose: 500 mg Documented by: Ondansetron HCl (Zofran) 4 mg IV Q4H PRN PRN Reason: Nausea Stop: 05/01/19 16:15 Last Admin: 04/02/19 03:26 Dose: 4 mg Documented by: Zolpidem Tartrate (Ambien) 5 mg PO HS PRN PRN Reason: Sleep Stop: 04/30/19 21:03
[2019-04-10 06:58] LABS: Basophils # (auto) 0.02 K/uL (0-0.2); Basophils % (auto) 0.4 %; Eosinophils # (auto) 0.02 K/uL (0-0.5); Eosinophils % (auto) 0.4 %; Hematocrit (blood only) 42.4 % (42-52); Hemoglobin 14.5 g/dL (14.0-18.0); Immature Granulocytes # (auto) 0.01 K/uL (0.00-0.02); Immature Granulocytes % (auto) 0.2 %; Lymphocytes # (auto) 1.33 K/uL (1.2-3.4); Lymphocytes % (auto) 28.8 %; Mean Corpuscular Hemoglobin 30.5 pg (25-34); Mean Corpuscular Hgb Conc 34.2 g/dL (32-36); Mean Corpuscular Volume 89.3 fL (80-100); Monocytes # (auto) 0.57 K/uL (0.11-0.59); Monocytes % (auto) 12.3 %; Neutrophils # (auto) 2.67 K/uL (1.4-6.5); Neutrophils % (auto) 57.9 %; Platelet Count 231 K/uL (130-400); RDW Coefficient of Variation 14.8 % (11.5-14.5); RDW Standard Deviation 47.8 fL (36.4-46.3); Red Blood Count 4.75 M/uL (4.7-6.1); White Blood Count 4.62 K/uL (4.8-10.8)
[2019-04-10 07:28] LABS: Albumin Level 4.6 gm/dl (3.4-5.0); Calcium 9.7 mg/dl (8.5-10.1); Creatinine Clr Calc Pharmacy 94.1 ml/min; Est GFR (African American) 132.1; Potassium 4.1 mmol/L (3.5-5.1)
[2019-04-10 07:36] LABS: Albumin Globulin Ratio 1.4 (0.9-2); Bilirubin,Total 0.5 mg/dl (0.2-1); Globulin 3.3 gm/dl (2.5-4.0); Total Protein 7.9 gm/dl (6.4-8.2)
--- NOTE | 2019-04-10 10:52 | Hospitalist Progress Note ---
Date of Service April 10, 2019 Assessment & Plan (1) Tylenol overdose: Intentional/suicidal. Denies suicidal ideation thereafter. Started N-acetylcysteine on presentation. Patient needs to stay in his room and stop roaming around in the hospital. LFTs peaked at 9100/9400-->. Tbili remained largely normal. INR peaked at 1.8. Down to 1.1 yesterday. Liver enzymes slowly trending down. Had a family meeting with patient's father and he agrees that patient should be transferred to the psych unit after he is medically cleared. Patient may need to stay in the hospital for the next several days to trend down his liver enzymes. No more NAC per poison control Psychiatry recommending inpatient psychiatric stay after medically cleared likely Sunday. (2) Right upper quadrant abdominal pain: Resolved (3) Nausea and vomiting: Likely secondary to Tylenol toxicity and antihistaminic and Tylenol PM. Resolved (4) Nicotine dependence: Declined nicotine patch. Monitor (5) Liver function abnormality: Due to acetaminophen. As above (6) Eating disorder: History of. Per psychiatry Discussed with ragman on 04/02. Working with patient regarding his exercise pre-meals - Limiting to 30 minutes/day. (7) DVT prophylaxis: SCDs - Low DVT risk per admission calculator Subjective Patient seen and examined at the bedside.No acute event over night.Discussed with patient's father and gave him updates. Continues to roam around in the hospital and we request requested him to stay in his room with his sitter. Pt denies fever, chills, chest pain, SOB, abdominal pain, frequency or urgency. Review of Systems Review of Systems: All systems reviewed & are unremarkable except as noted in HPI & below Physical Exam Constitutional: WD/WN, vitals as above Eyes: EOM intact bilaterally; no conjunctival abnormality ENMT: external ear and nose normal, oropharynx normal Neck: trachea midline, no thyromegaly normal visual inspection Respiratory: normal respiratory effort, lungs clear to auscultation no respiratory distress Cardiovascular: Rate/Rhythm: regular rhythm and + bradycardic Heart Sounds: normal S1 and normal S2 Vessels: no JVD Extremities: no edema Gastrointestinal (Abdomen): Inspection/Auscultation: abdomen normal to inspection; abdomen not distended Musculoskeletal: no cyanosis or clubbing, extremities motor strength 5/5 Skin: no rashes, warm and dry Neurologic: moves all extremities and awake Psychiatric: Orientation: alert, oriented x 3, oriented to person and cooperative Apperance: appropriately dressed (casually, in t-shirt and gym shorts), appropriately groomed and appeared stated age Eye Contact: good eye contact Motor Behavior: steady gait and station and no abnormal motor movements Speech: normal rate/rhythm/volume of speech Affect: mood congruent with affect Mood: + depressed mood ("it's been mostly low mood all the time") Thought Process: goal directed thought process, linear/logical thought process, clear/coherent thought process and thought association intact Thought Content: reality based without delusions and + self deprecation (consistent with diagnosis of anorexia); no hopelessness (intermittent hopelessness, but none presently) Suicidal Thoughts: denies suicidal thoughts (at present), denies suicidal plan and denies suicidal intent Homicidal Thoughts: denies homicidal thoughts Hallucinations: no auditory hallucinations and no visual hallucinations Cognition: attention grossly intact and language grossly intact Insight: + fair insight Judgement: + fair judgement Results & Data Vital Signs (Past 12 Hours) Vital Signs Temp Pulse Resp BP Pulse Ox 04/10/19 07:36 36.6 C 77 18 124/75 97 04/09/19 23:26 36.3 C L 79 20 121/71 99 PG Care Time/CCT Total # of Minutes Spent Total Time Spent with Patient: Total time spent is greater than 50% in coordination of care (as documented) at patient's floor/unit and/or counseling patient: (1) Tylenol overdose Encounter type: initial encounter Injury intent: intentional self-harm Qualified Code(s): T39.1X2A - Poisoning by 4-Aminophenol derivatives, intentional self-harm, initial encounter (2) Nausea and vomiting Vomiting Intractability: unspecified Vomiting type: unspecified Qualified Code(s): R11.2 - Nausea with vomiting, unspecified
[2019-04-11 06:58] LABS: Basophils # (auto) 0.02 K/uL (0-0.2); Basophils % (auto) 0.4 %; Eosinophils # (auto) 0.02 K/uL (0-0.5); Eosinophils % (auto) 0.4 %; Hematocrit (blood only) 46.2 % (42-52); Hemoglobin 16.1 g/dL (14.0-18.0); Immature Granulocytes # (auto) 0.01 K/uL (0.00-0.02); Immature Granulocytes % (auto) 0.2 %; Lymphocytes % (auto) 28.5 %; Mean Corpuscular Hemoglobin 31.1 pg (25-34); Mean Corpuscular Hgb Conc 34.8 g/dL (32-36); Mean Corpuscular Volume 89.2 fL (80-100); Mean Platelet Volume 9.2 fL (7.4-10.4); Monocytes # (auto) 0.57 K/uL (0.11-0.59); Monocytes % (auto) 11.6 %; Neutrophils # (auto) 2.89 K/uL (1.4-6.5); Neutrophils % (auto) 58.9 %; Platelet Count 284 K/uL (130-400); RDW Standard Deviation 47.8 fL (36.4-46.3); Red Blood Count 5.18 M/uL (4.7-6.1); White Blood Count 4.91 K/uL (4.8-10.8)
[2019-04-11 07:25] LABS: BUN Creatinine Ratio 19.3 (10-20); Creatinine Clr Calc Pharmacy 82.8 ml/min; Est GFR (African American) 113.1; Est GFR (Non-African American) 97.6; Potassium 4.2 mmol/L (3.5-5.1)
[2019-04-11 07:33] LABS: Albumin Globulin Ratio 1.5 (0.9-2); Bilirubin,Total 0.7 mg/dl (0.2-1); Globulin 3.4 gm/dl (2.5-4.0); Total Protein 8.4 gm/dl (6.4-8.2)
[2019-04-11] MEDS ORDERED: NICOTINE 14 MG/24 HR PATCH TD SCH (09:00)
[2019-04-11] MEDS ORDERED: Nursing to Pharmacy Communication ONE (12:02)
[2019-04-11] MEDS: NICOTINE 21 MG/24 HR TDSY TD SCH (12:27)
--- NOTE | 2019-04-11 13:56 | Psychiatric Progress Note ---
Date of Service April 11, 2019 Impression / Recommendations Impression 19-year-old male admitted 03/31/2019 after presenting to the ED status post intentional Tylenol overdose. It was reported that the patient took between 32 and 40 Tylenol around 6 AM on 03/31/2019. Patient was reportedly found around 1530 by his father, "covered in vomit." Patient was brought to the ED for medical treatment and admitted to intentional overdose of medication. Patient has a long history of anorexia nervosa, depression, and OCD. He had recently been discharged from a facility in [place], where he received intensive inpatient treatment for his eating disorder for a period of 6 months. Ps ychiatric consultation was requested to evaluate the patient for intentional overdose. Pt denies SI since admission, but has been reminded that inpatient psychiatric treatment is still being recommended after his significant overdose. Due to the significance of the patient's intentional overdose, would not recommend initiation of new psychiatric medications until he is deemed medically cleared and liver enzymes are in a more reasonable range. Pt is now requesting transfer back to [facility] in [place], where he had been for a 6 months treatment recently. Pt was agreeable to signing ROIs in order to explore this option. Would not recommend discharge home without some level of inpatient psychiatric intervention - but this may be the most appropriate level of care for the patient given his significant comorbid eating disorder. Risk Factors Assessment Male: Yes : Yes Do You Have Access To A Gun?: No Mental Health Diagnoses: Yes Substance Use Disorders: Yes (regular marijuana use) Previous Attempt: No Family History of Suicide: No Previous Psychiatric Hospitalization: Yes (Multiple inpatient admissions for treatment of anorexia) Hopelessness: Yes (Intermittently) Protective Factors Assessment : No Responsible for Young Children: No Employed: Yes Stable Relationships: No Supportive Family: Yes Good Rapport with Provider: Yes Interval History Identifying Information 19-year-old male admitted medically on 03/31/2019 after presenting to the ED status post intentional Tylenol overdose. It is reported the patient took about 40 Tylenol around 6 AM the morning of presentation. Patient did admit that his overdose was in response to mood concerns and not feeling happy. It is reported the patient has no prior history of suicide attempts. Psychiatric consultation was requested to evaluate patient after the suicide attempt. Chief Complaint "Oh hi, thanks for coming." Review of Systems Notes Constitutional: denied Cardiovascular: denied Respiratory: denied Gastrointestinal: denied Neurological: denied Psychiatric: denies symptoms other than stated above Total of at least 10 systems reviewed, pertinent positives as above and in HPI. Subjective Subjective Patient's case was reviewed and discussed with supervising psychiatrist and psychiatrist nurse liaison. Liaison reports the patient has desired for coordination of care with his treatment team at the [facility] in [place]. He is also requesting for our team to be in communication with his outpatient psychiatric providers (we had already faxed ROIs for local providers). Pt was seen today to assess progress since admission, as it was reported he was specifically requesting to speak with a provider today. Pt shares with this provider that he and his parents would be most interested in returning to the eating disorder facility in [place], rather than being admitted to our unit. He provided this PA-C with a list of contact information for the facility. He denies other needs at this time, simply that he would like to explore other facilities for treatment after medical clearance. He denies SI and any mood concerns today. Physical Exam Psychiatric Orientation: alert, oriented x 3 and cooperative (and pleasant) Apperance: appropriately dressed (casually, in long-sleeve t-shirt, shorts, and a beanie hat), appropriately groomed and appeared stated age Short stature, thin appearing Eye Contact: good eye contact Motor Behavior: steady gait and station and + psychomotor agitation (appearing restless/energetic) Speech: normal rate/rhythm/volume of speech Affect: euthymic affect and mood congruent with affect Mood: no depressed mood and no anxious mood Thought Process: goal directed thought process, clear/coherent thought process and thought association intact Thought Content: reality based without delusions; no hopelessness and no worthlessness Suicidal Thoughts: denies suicidal thoughts and denies suicidal intent Homicidal Thoughts: denies homicidal thoughts Hallucinations: no auditory hallucinations and no visual hallucinations Cognition: attention grossly intact and language grossly intact Insight: + fair insight Judgement: + fair judgement Vital Signs (Past 24 Hours) Last Vital Signs Temp 36.4 C L 04/11/19 00:01 Pulse 61 04/11/19 00:01 Resp 18 04/11/19 00:01 BP 124/69 04/11/19 00:01 Pulse Ox 97 04/11/19 00:01 Results & Data Laboratory Results Laboratory Results - last 24 hr 04/11/19 04/11/19 06:01 06:01 WBC 4.91 RBC 5.18 Hgb 16.1 Hct 46.2 MCV 89.2 MCH 31.1 MCHC 34.8 RDW Std Deviation 47.8 H RDW Coeff of Adrienne 15.0 H Plt Count 284 MPV 9.2 Immature Gran % (Auto) 0.2 Neut % (Auto) 58.9 Lymph % (Auto) 28.5 [place] % (Auto) 11.6 Eos % (Auto) 0.4 Baso % (Auto) 0.4 Immature Gran # (Auto) 0.01 Neut # (Auto) 2.89 Lymph # (Auto) 1.40 [place] # (Auto) 0.57 Eos # (Auto) 0.02 Baso # (Auto) 0.02 Sodium 139 Potassium 4.2 Chloride 109 H Carbon Dioxide 24 Anion Gap 6.0 BUN 21 H Creatinine 1.08 Est Cr Clr Drug Dosing 82.8 Est GFR ( Amer) 113.1 Est GFR (Non-Af Amer) 97.6 BUN/Creatinine Ratio 19.3 Glucose 83 Calcium 10.0 Total Bilirubin 0.7 AST 71 H ALT 2236 H Alkaline Phosphatase 174 H Total Protein 8.4 H Albumin 5.0 Globulin 3.4 Albumin/Globulin Ratio 1.5 Current Inpatient Medications Current Inpatient Medications: Current Inpatient Medications Calcium Carbonate (Tums) 500 mg PO Q4H PRN PRN Reason: Indigestion Stop: 05/01/19 13:24 Last Admin: 04/03/19 20:19 Dose: 500 mg Documented by: Miscellaneous (Remove Nicoderm Patch) 1 ea N/A [id number] [facility] Stop: 05/11/19 08:58 Last Admin: 04/11/19 07:57 Dose: Not Given Documented by: Nicotine (Nicoderm Cq) 21 mg TD DAILY [facility] Stop: 05/11/19 12:29 Last Admin: 04/11/19 12:27 Dose: 21 mg Documented by: Ondansetron HCl (Zofran) 4 mg IV Q4H PRN PRN Reason: Nausea Stop: 05/01/19 16:15 Last Admin: 04/02/19 03:26 Dose: 4 mg Documented by: Zolpidem Tartrate (Ambien) 5 mg PO HS PRN PRN Reason: Sleep Stop: 04/30/19 21:03
--- NOTE | 2019-04-11 16:49 | Hospitalist Progress Note ---
Date of Service April 11, 2019 Assessment & Plan (1) Tylenol overdose: Intentional/suicidal. Denies suicidal ideation thereafter. Started N-acetylcysteine on presentation. Patient needs to stay in his room and stop roaming around in the hospital. LFTs peaked at 9100/9400-->-->. Tbili remained largely normal. INR peaked at 1.8. Down to 1.1 yesterday. Liver enzymes slowly trending down. Had a family meeting with patient's father and mother separately and both of them are recommending that patient should go back to [facility]/[place], [place] because he did well over there and was able to suppress his OCD and eating disorder impulses. Patient will have intake over the phone at [facility] on Sunday at 2:30 PM. After intake process is completed they will invite patient for admission over there. Now, if patient liver function test trends down next week to the acce ptable level of possibly ALT 300-500 and patient medically cleared to be discharged it would be preferable to be admitted to [facility] thereafter. If you are see bed is not yet available and patient clinically cleared then my recommendation is to send him in transition to inpatient psychiatric unit at [facility] until [facility] bed is available. No more NAC per poison control This was discussed with patient parents dietitian and psychiatry and we all agree with the same plan. (2) Right upper quadrant abdominal pain: Resolved (3) Nausea and vomiting: Likely secondary to Tylenol toxicity and antihistaminic and Tylenol PM. Resolved (4) Nicotine dependence: Declined nicotine patch. Monitor (5) Liver function abnormality: Due to acetaminophen. As above (6) Eating disorder: Patient lost 10% of body weight since discharge from [facility] which was March 04, 2019. He is follow-up by dietitian and psychiatrist regularly Patient has compulsion to exercise constantly and control and limit his daily intake as much as he can. Working with patient regarding his exercise pre-meals - Limiting to 30 minutes/day. (7) DVT prophylaxis: SCDs - Low DVT risk per admission calculator Subjective Patient seen and examined at the bedside. Patient mom is in the room. We discussed patient situation. Patient was from September 2018 up until February 2019 in the [facility] in [facility]. He was hospitalized there for anorexia nervosa and he successfully graduated from treatment. After returning back home to [place] he worked at [employer] which he was performing pretty well. Unfortunately on March 31, 2019, he presented to the emergency room with a complaint of intentional overdose with Tylenol when he swallowed approximately 32 to 40 pills at once. Patient was found covered with vomit approximately 9 hours later by his mother and father. So far patient liver enzyme peaked at 9000 and now they are trending down to approximately 2200. AST is getting close to normal, alkaline phosphatase. Only enzyme that is still elevated is ALT.Patient continues to have a habit of restricted calory intake and stenosis exercises. Patient has strong compulsion to exercise and engages in isometrics, calisthenics, micromovements , he has strong fears that he will become fat and gain weight. Patient lost 10% of his body weight since returning home from [facility] located in [place], [place]. Patient continues to be manipulative. He was not yet seen by outpatient psychiatrist locally prior to this hospitalization. Patient is seen by dietitian 2-3 times per week and she knows him very well. And also continues to noncompliant with meal plan which may contribute to his elevated LFTs. [facility] is specific for treatment of patient with eating disorder and staff is trained in the recognizing manipulative behaviors of such patients. Patient denies fever, chi lls, chest pain, shortness of breath, abdominal pain, frequency, urgency, right upper quadrant pain. Patient denies of suicidal ideations. Review of Systems Review of Systems: All systems reviewed & are unremarkable except as noted in HPI & below Physical Exam Constitutional: WD/WN, vitals as above Eyes: EOM intact bilaterally; no conjunctival abnormality ENMT: external ear and nose normal, oropharynx normal Neck: trachea midline, no thyromegaly normal visual inspection Respiratory: normal respiratory effort, lungs clear to auscultation no respiratory distress Cardiovascular: Rate/Rhythm: regular rhythm and + bradycardic Heart Sounds: normal S1 and normal S2 Vessels: no JVD Extremities: no edema Gastrointestinal (Abdomen): Inspection/Auscultation: abdomen normal to inspection; abdomen not distended Musculoskeletal: no cyanosis or clubbing, extremities motor strength 5/5 Skin: no rashes, warm and dry Neurologic: moves all extremities and awake Psychiatric: Orientation: alert, oriented x 3, oriented to person and cooperative Apperance: appropriately dressed (casually, in t-shirt and gym shorts), appropriately groomed and appeared stated age Eye Contact: good eye contact Motor Behavior: steady gait and station and no abnormal motor movements Speech: normal rate/rhythm/volume of speech Affect: mood congruent with affect Mood: + depressed mood ("it's been mostly low mood all the time") Thought Process: goal directed thought process, linear/logical thought process, clear/coherent thought process and thought association intact Thought Content: reality based without delusions and + self deprecation (consistent with diagnosis of anorexia); no hopelessness (intermittent hopelessness, but none presently) Suicidal Thoughts: denies suicidal thoughts (at present), denies suicidal plan and denies suicidal intent Homicidal Thoughts: denies homicidal thoughts Hallucinations: no auditory hallucinations and no visual hallucinations Cognition: attention grossly intact and language grossly intact Insight: + fair insight Judgement: + fair judgement Results & Data Vital Signs (Past 12 Hours) Vital Signs Temp Pulse Resp BP Pulse Ox 04/11/19 15:56 36.8 C 90 18 122/71 97 PG Care Time/CCT Total # of Minutes Spent Total Time Spent with Patient: Total time spent is greater than 50% in coordination of care (as documented) at patient's floor/unit and/or counseling patient: (1) Tylenol overdose Encounter type: initial encounter Injury intent: intentional self-harm Qualified Code(s): T39.1X2A - Poisoning by 4-Aminophenol derivatives, intentional self-harm, initial encounter (2) Nausea and vomiting Vomiting Intractability: unspecified Vomiting type: unspecified Qualified Code(s): R11.2 - Nausea with vomiting, unspecified
[2019-04-12 06:02] LABS: Basophils # (auto) 0.01 K/uL (0-0.2); Basophils % (auto) 0.2 %; Eosinophils # (auto) 0.04 K/uL (0-0.5); Eosinophils % (auto) 0.8 %; Hematocrit (blood only) 42.4 % (42-52); Hemoglobin 14.2 g/dL (14.0-18.0); Immature Granulocytes # (auto) 0.01 K/uL (0.00-0.02); Immature Granulocytes % (auto) 0.2 %; Lymphocytes # (auto) 1.67 K/uL (1.2-3.4); Lymphocytes % (auto) 32.6 %; Mean Corpuscular Hemoglobin 30.2 pg (25-34); Mean Corpuscular Hgb Conc 33.5 g/dL (32-36); Mean Corpuscular Volume 90.2 fL (80-100); Mean Platelet Volume 9.2 fL (7.4-10.4); Monocytes # (auto) 0.53 K/uL (0.11-0.59); Monocytes % (auto) 10.3 %; Neutrophils # (auto) 2.87 K/uL (1.4-6.5); Neutrophils % (auto) 55.9 %; Platelet Count 250 K/uL (130-400); RDW Coefficient of Variation 14.8 % (11.5-14.5); RDW Standard Deviation 48.6 fL (36.4-46.3); White Blood Count 5.13 K/uL (4.8-10.8)
[2019-04-12 06:38] LABS: Albumin Level 4.4 gm/dl (3.4-5.0); Calcium 9.3 mg/dl (8.5-10.1); Creatinine Clr Calc Pharmacy 77.3 ml/min; Est GFR (African American) 109.4; Est GFR (Non-African American) 94.4; Potassium 4.6 mmol/L (3.5-5.1)
[2019-04-12 06:46] LABS: Albumin Globulin Ratio 1.4 (0.9-2); Bilirubin,Total 0.9 mg/dl (0.2-1); Globulin 3.2 gm/dl (2.5-4.0); Total Protein 7.6 gm/dl (6.4-8.2)
[2019-04-12] MEDS: NICOTINE 21 MG/24 HR TDSY TD SCH (08:25)
--- NOTE | 2019-04-12 17:39 | Hospitalist Progress Note ---
Date of Service April 12, 2019 Assessment & Plan (1) Acute liver failure: 2nd to tylenol overdose. s/p NAC protocol during first portion of his stay. Had significant transaminitis and coagulopathy from the tylenol overdose. Fortunately his INR returned to normal and his ast is near-normal and alt continues to improve nicely day-to-day. Overall he is quite fortunate given the magnitude of his acute hepatitis and the ongoing recovery. Repeat LFTs and INR in am. Avoid tylenol and other hepatotoxic agents. Spoke with DR Mooney from GI who will formally consult in am. He has no jaundice on examination and has not had signs/symptoms of hepatic encephalopathy while here. (2) Tylenol overdose: s/p suicide attempt prior to admission. s/p NAC protocol for acute liver failure from the tylenol. (3) Eating disorder: long-standing going back to early teenage years. has received intensive therapy for this in [place] in 2019. patient wishes to return to that same facility after discharge. I spoke with the psych liason twice today -- he may need a short stay in our mental health unit prior to gaining insurance auth, awaiting a bed, etc for the facility in [place]. defer on any medications/therapy for his eating d/o to psych. recent K/mag wnl. check TSH, B12, folate, and 25-OH vitamin D to be complete to ensure nutritionally his levels are wnl. (4) Depression: with s/p suicide attempt. defer management to psych. (5) Suicide attempt by acetaminophen overdose: (6) Moderate protein-calorie malnutrition: based on slack line yarder calculations. eating has been stable the last few days. malnutrition is 2nd to long-standing eating disorder. check nutritional labs in am. (7) Cannabis abuse: noted crisis counselor to abstain (8) Dehydration: resolved (9) DVT prophylaxis: patient walking every hour on the hour low risk -- defer on chemical means await formal GI consult in am if cleared medically by GI for discharge could potentially transfer to [facility] tomorrow on Sunday total time today - 40 minutes -- speaking with psych (twice), GI, updating the patient at bedside, coordinating care, etc Subjective patient feeling very well. walking the hallways frequently without any dizziness or limitation. he is eating his meals and following "the rules" that the eating disorders program in [place] has laid out for him. he inquires about the plan of care. ideally he would like to be discharged from medical and then go directly to [place] to "[facility]" (an eating disorders residential hospital) by plane. His parents would fly to [place] with him. He previously spent 5 months there earlier this year and was released in February. he inquires if he can walk to other floors of the hospital. denies suicidal ideation, homicidal ideation, visual or auditory hallucinations. remains on 1:1 observation with a sitter. denies h/o recent blood transfusion, multiple sexual partners, or IV drug abuse (I asked him these questions in private due to the recent acute liver failure). Review of Systems Constitutional: no fever and no chills Respiratory: no cough and no dyspnea on exertion Cardiovascular: no chest pain Gastrointestinal: no abdominal pain, no nausea and no vomiting Musculoskeletal: no joint pain Psychiatric: no depression, no abnormal sleep pattern, no change in appetite and no suicidal ideation Physical Exam Constitutional: + well hydrated; no acute distress and no altered mental status Eyes: + anicteric sclerae ENMT: external ear and nose normal, oropharynx normal Respiratory: normal respiratory effort, lungs clear to auscultation Cardiovascular: RRR, no murmur, no edema Heart Sounds: normal S1 and normal S2 Vessels: posterior tibial pulses present and dorsalis pedis pulses present; no JVD Gastrointestinal (Abdomen): normal bowel sounds, soft, nontender, no hepat osplenomegaly Skin: no jaundice Psychiatric: Orientation: alert and oriented x 3 Apperance: appropriately dressed and appropriately groomed Eye Contact: good eye contact Motor Behavior: steady gait and station Speech: normal rate/rhythm/volume of speech Affect: euthymic affect Results & Data Vital Signs (Past 12 Hours) Vital Signs Temp Pulse Resp BP Pulse Ox 04/12/19 17:09 36.6 C 85 16 123/74 98 04/12/19 07:10 36.6 C 66 18 114/70 98 Laboratory Results Laboratory Results - last 24 hr 04/12/19 04/12/19 05:12 05:12 WBC 5.13 RBC 4.70 Hgb 14.2 Hct 42.4 MCV 90.2 MCH 30.2 MCHC 33.5 RDW Std Deviation 48.6 H RDW Coeff of Adrienne 14.8 H Plt Count 250 MPV 9.2 Immature Gran % (Auto) 0.2 Neut % (Auto) 55.9 Lymph % (Auto) 32.6 Wayne % (Auto) 10.3 Eos % (Auto) 0.8 Baso % (Auto) 0.2 Immature Gran # (Auto) 0.01 Neut # (Auto) 2.87 Lymph # (Auto) 1.67 Wayne # (Auto) 0.53 Eos # (Auto) 0.04 Baso # (Auto) 0.01 Sodium 137 Potassium 4.6 Chloride 106 Carbon Dioxide 27 Anion Gap 4.0 BUN 29 H Creatinine 1.11 Est Cr Clr Drug Dosing 77.3 Est GFR ( Amer) 109.4 Est GFR (Non-Af Amer) 94.4 BUN/Creatinine Ratio 26.0 H Glucose 70 Calcium 9.3 Total Bilirubin 0.9 AST 57 H ALT 1670 H Alkaline Phosphatase 153 H Total Protein 7.6 Albumin 4.4 Globulin 3.2 Albumin/Globulin Ratio 1.4 PG Care Time/CCT Total # of Minutes Spent Total Time Spent with Patient: Total time spent is greater than 50% in coordination of care (as documented) at patient's floor/unit and/or counseling patient: (1) Tylenol overdose Encounter type: initial encounter Injury intent: intentional self-harm Qualified Code(s): T39.1X2A - Poisoning by 4-Aminophenol derivatives, intentional self-harm, initial encounter (2) Eating disorder Eating disorder type: unspecified eating disorder Qualified Code(s): F50.9 - Eating disorder, unspecified (3) Depression Depression Type: other depression Qualified Code(s): F32.89 - Other specified depressive episodes (4) Acute liver failure Hepatic coma status: without hepatic coma Qualified Code(s): K72.00 - Acute and subacute hepatic failure without coma (5) Suicide attempt by acetaminophen overdose Encounter type: subsequent encounter Qualified Code(s): T39.1X2D - Poisoning by 4-Aminophenol derivatives, intentional self-harm, subsequent encounter
[2019-04-13 06:17] LABS: INR 1.2 (0.9-1.1); Prothrombin Time 11.9 Seconds (9.0-12.0)
[2019-04-13 06:19] LABS: Albumin Level 4.4 gm/dl (3.4-5.0); BUN Creatinine Ratio 28.9 (10-20); Calcium 9.4 mg/dl (8.5-10.1); Creatinine Clr Calc Pharmacy 82.3 ml/min; Potassium 4.3 mmol/L (3.5-5.1)
[2019-04-13 06:30] LABS: Albumin Globulin Ratio 1.5 (0.9-2); Bilirubin,Total 0.8 mg/dl (0.2-1); Globulin 2.9 gm/dl (2.5-4.0); Thyroid Stimulating Hormone 2.36 uIu/ml (0.300-4.500); Total Protein 7.3 gm/dl (6.4-8.2)
[2019-04-13] MEDS: NICOTINE 21 MG/24 HR TDSY TD SCH (08:20)
[2019-04-13 08:22] LABS: Folate (Folic Acid) 16.95 ng/ml (>5.38)
[2019-04-13] MEDS ORDERED: CHOLECALCIFEROL 1,000 UNITS TAB PO SCH (09:00)
--- NOTE | 2019-04-13 11:39 | Gastrointestinal Consultation ---
Date of Consultation April 13, 2019 Assessment & Plan (1) Suicide attempt by acetaminophen overdose: (2) Acute liver failure: Doing well at present I would expect his liver panel to normalize over an 8 week time period. I instructed him to avoid alcohol as it is a known liver toxin He will be transferred to an inpatient eating disorder facility Repeat Liver panel in 3 days, 7 days, and then weekly until normalization Repeat INR in 3 days, 7 days and then weekly until normalizatio History of Present Illness Reason for Consultation: Tylenol overdose Attending Physician: Sarthak Noble History of Present Illness Fernando is a 19 yo CM who presented to the ER on 03/31 with intentional overdose with Tylenol. He does have a history of depression, OCD and Anorexia, and has had inpatient stays for these in the past. He received N-acetylcysteine by protocol. He did have a significant transaminitis and coagulopathy, however, his numbers have significantly improved since that time. Currently, he is feeling very well. He denies any fevers, chills, nausea, vomiting, diarrhea, jaundice, acholic stools, dark urine or pruritus at present. He states that, "I am in a much better state of mind right now, and will be going to an inpatient facility in [place] that specializes in eating disorders." Allergies Allergy/AdvReac Type Severity Reaction Status Date / Time No Known Allergies Allergy NONE Unverified 03/31/19 18:07 Home Medications Home Medications Medication Instructions Recorded Confirmed Type atomoxetine 40 mg PO DAILY 03/31/19 03/31/19 History Patient History Medical History Acne (Chronic) Anorexia nervosa, binge-eating purging type Anxiety Caloric malnutrition Generalized anxiety disorder Hydrocele (Resolved) Liver function abnormality Major depressive disorder Marijuana use Obsessive compulsive disorder (Chronic) Surgical History History of appendectomy (Resolved) History of appendectomy Family History Father No problems noted. Mother No problems noted. 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 Beliefs That Will Affect Care: None Current Living Situation: Parent Feels Safe at Home: Yes Smoking Status: Current every day smoker Tobacco Type: e-cigarettes ; Cigarettes Per Day: 1 ; Second Hand Exposure: Yes ; Hx Alcohol Use: Yes Alcohol type: hard liquor Hx Substance Use: Yes substance use type: marijuana Substance Use Type Other:: Xanax Last Used Substance: Days (ago) Review of Systems Review of Systems: All systems reviewed & are unremarkable except as noted in HPI & below Physical Exam Constitutional: WD/WN, vitals as above Eyes: PERRL, conjunctivae normal, anicteric sclerae ENMT: external ear and nose normal, oropharynx normal Neck: trachea midline, no thyromegaly Respiratory: normal respiratory effort, lungs clear to auscultation Cardiovascular: RRR, no murmur, no edema Gastrointestinal (Abdomen): normal bowel sounds, soft, nontender, no hepatosplenomegaly Skin: no rashes, warm and dry Psychiatric: A+Ox3, euthymic affect Results & Data Vital Signs (Past 12 Hours) Vital Signs Temp Pulse Resp BP Pulse Ox 04/13/19 08:48 36.4 C L 79 18 113/72 99 PG Care Time/CCT Total # of Minutes Spent Total Time Spent with Patient: Total time spent is greater than 50% in coordination of care (as documented) at patient's floor/unit and/or counseling patient: (1) Suicide attempt by acetaminophen overdose Encounter type: subsequent encounter Qualified Code(s): T39.1X2D - Poisoning by 4-Aminophenol derivatives, intentional self-harm, subsequent encounter (2) Acute liver failure Hepatic coma status: without hepatic coma Qualified Code(s): K72.00 - Acute and subacute hepatic failure without coma
--- NOTE | 2019-04-13 15:26 | Discharge Summary ---
Date of Service date of admission - March 31, 2019 date of discharge - April 13, 2019 Admission HPI Per Admitting Provider 19-year-old with past medical history of anorexia nervosa who was admitted to the ICU about a year ago because of electrolyte imbalance due to his anorexia ne rvosa. After that family put him in inpatient rehab for 3 months, followed by another 6 months of eating disorder treatment from September to February 2019 in [place], [place]. He was recently discharged from rehab which was in intensive inpatient and outpatient program. After that he expressed his feelings of depression and feeling lost. Mother said that he threatened to commit suicide many years ago but he never did it. Then today he did swallow significant amount of Tylenol tablets - appears to be 30 extra-strength Tylenol along with 20 Tylenol PM. He did not tell anyone and he stayed home until his father came from work around 3:57 PM and found him with multiple episodes of vomiting around him. His father ultimately brought him to the hospital. Principal Diagnosis acute liver failure 2nd to tylenol overdose Discharge Exam Constitutional + well hydrated; no acute distress and no altered mental status Eyes + anicteric sclerae ENMT external ear and nose normal, oropharynx normal Respiratory normal respiratory effort, lungs clear to auscultation Cardiovascular RRR, no murmur, no edema Heart Sounds: normal S1 and normal S2 Vessels: posterior tibial pulses present and dorsalis pedis pulses present; no JVD Gastrointestinal (Abdomen) normal bowel sounds, soft, nontender, no hepatosplenomegaly Skin no jaundice Psychiatric Orientation: alert and oriented x 3 Apperance: appropriately dressed and appropriately groomed Affect: euthymic affect Discharge Data Allergies Allergy/AdvReac Type Severity Reaction Status Date / Time No Known Allergies Allergy NONE Unverified 03/31/19 18:07 Consultations Psychiatry Behavioral Health Liaison Gastroenterology - Karan Mooney DO Hospital Course (1) Acute liver failure: 2nd to tylenol overdose. s/p NAC protocol during first portion of his stay. Had significant transaminitis and coagulopathy from the tylenol overdose. Fortunately his INR returned to normal and his AST was near-normal and ALT improved considerably prior to discharge to mental health unit. Overall he was quite fortunate given the magnitude of his acute hepatitis. Patient was seen by Dr Karan Mooney from gastroenterology who advised repeat LFTs/INR in 3 days, 7 days, and then weekly thereafter following discharge until LFTs have completely normalized. He is to avoid tylenol and other hepatotoxic agents along with alcohol following discharge until further notice Fernando never had jaundice on examination and did not have signs/symptoms of hepatic encephalopathy while here. (2) Tylenol overdose: s/p suicide attempt prior to admission. s/p NAC protocol for acute liver failure from the tylenol. See discussion above in "acute liver failure." (3) Eating disorder: Long-standing going back to early teenage years. Received intensive therapy for this in [place] in 2019. Patient voiced a desire to return to that same facility after discharge. No medications were added/changed during this hospital stay for his eating disorder. TSH, B12, folate, and 25-OH vitamin D were checked and were all normal except for mildly low vitamin D level. (4) Depression: with s/p suicide attempt. seen by psychiatry - following hospital discharge he was transferred to our mental health unit for ongoing care. (5) Suicide attempt by acetaminophen overdose: He was placed on 1:1 observation during his prolonged hospitalization. (6) Moderate protein-calorie malnutrition: Based on marketing information coordinator calculations. Eating was stable during the hospitalization. Malnutrition is 2nd to long-standing eating disorder. B12/folate levels were normal. 25-OH vitamin D level was mildly low and 2000 IU daily of vitamin D was rec ommended. (7) Cannabis abuse: noted counseled to abstain Total Time Total Time Spent Total Time Spent (In Minutes): 35 Discharge Plan Discharge Items Patient Disposition: Transfer Behavioral Health Fac Reason For Visit: TYLENOL OVERDOSE Discharge Diagnosis: 1. tylenol overdose 2. acute liver failure/injury - resolving 3. eating disorder 4. mild vitamin D insufficiency Activity: Resume your previous activity Non-emergency contact: Primary Care Provider and Psychiatrist Call non-emergency contact if: you have any medication questions Follow-up/Referrals: Paola De Leon MD [Primary Care Provider] - (follow-up with primary care provider after discharge from "[facility]" in [place] ) Diet: Regular Addtl Attending Provider Instructions: You were admitted for a tylenol overdose which resulted in a significant injury to your liver (acute liver failure). Fortunately the liver recovered nicely during your hospitalization with day-to-day improvement of your liver function tests. You were seen by the GI doctor who recommended the following - 1. repeat LFTs in 3 days, 7 days, and then weekly thereafter 2. repeat INR in 3 days, 7 days, and then weekly thereafter NO TYLENOL NO ALCOHOL NO DRUGS of any kind that can potentially hurt the liver follow-up -- to be determined after release from the Mental Health Unit Pending Studies at Discharge: No Stand-Alone Forms: My [facility], Suicide Prevention Resources Medications and DC Order Prescriptions: New nicotine [Nicoderm CQ] 21 mg/24 hr Patch 24 Hour 21 mg transdermal DAILY Qty: 30 RF: 0 cholecalciferol (vitamin D3) [Vitamin D3] 25 mcg (1,000 unit) Tablet 2,000 unit PO QAM Qty: 60 RF: 2 Discontinued atomoxetine 40 mg capsule 40 mg PO DAILY RF: 0 Discharge Orders: Discharge Order (Routine); Ordered 04/13/19 Ordered By: Sarthak Noble Admission Data Admit Date/Time: 03/31/19 21:06 Attending Provider: Sarthak Noble Admit Provider: Meghan Tirado Primary Care Provider: Paola De Leon Other Providers: Eloy Lacy ; Meghan Tirado ; Gail De La Cruz ; Karan Mooney Other Interventions: Discharge Summary Assessment (RN) Last Done: 04/13/19 15:29 DC Date/Time DO NOT enter until pt leaves facility: 04/13/19 16:50
== END 2019-04-13 16:50 | DRG 918 ==
LOC: ED 16:36 → 2S 21:06 → SUATTDRO 21:06 → 2S 22:04 → 4W 04-02 07:11

== ENCOUNTER 2019-04-13 16:20 | Inpatient (IN) ==
[2019-04-13] MEDS ORDERED: ALUMINUM/MAGNESIUM SUSP 30 ML UDC PO PRN (16:58)
[2019-04-13] MEDS ORDERED: BISMUTH SUBSALICYLATE PER ML OMNICELL CHARGE PO PRN (16:58)
[2019-04-13] MEDS ORDERED: MAGNESIUM HYDROXIDE SUSP 30 ML UDC PO PRN (16:58)
[2019-04-13] MEDS ORDERED: SODIUM CHLORIDE 0.65% NA SOLN 45 ML (OCEAN) PRN (16:58)
[2019-04-13 21:23] VITALS: O2SAT 99
[2019-04-14 06:43] VITALS: BP 122/75; TEMP 97.7
[2019-04-14] MEDS ORDERED: NICOTINE 21 MG/24 HR TDSY TD SCH (09:00)
[2019-04-14] MEDS ORDERED: CHOLECALCIFEROL 1,000 UNITS TAB PO SCH (09:00)
--- NOTE | 2019-04-14 09:05 | History & Physical ---
Date of Service April 14, 2019 Impression / Recommendations Impression 19-year-old male admitted voluntarily for inpatient psychiatric treatment on 04/13/2019. Patient was hospitalized on the medical floor between 03/31/2019 and 04/13/2019, after intentionally overdosing on Tylenol as a suicide attempt. Coordination between poison control and higher level care centers was maintained during his hospitalization, as his liver enzymes reached a recorded maximum of AST - 9121 and ALT - 9432. As bilirubin and PT/INR remained within a decent range, close monitor continued. Pt was eventually medically cleared and transferred to inpatient psychiatric treatment to address mood disorder, disordered eating habits related to diagnosis of anorexia, and other stressors leading to his suicide attempt. Patient has expressed interest in being referred to an inpatient facility specializing in the treatment of eating disorders. He is scheduled for an intake with [facility] on 04/14 and is hopeful to be accepted and transferred soon. As his liver enzymes remain abnormal, we are advising against beginning psychiatric medications at this time. Patient was informed of this recommendation, and is currently in agreement. We will continue laboratory evaluations per GI/hospitalist recommendations as outlined below. Patient's dietitian has been reconsulted for this admission, in order to allow her involvement in his psychiatric treatment. Will defer to his dietitian for meal planning and restrictions related to exercise. Patient will be encouraged to participate in group and recreational programming. Family has been involved in phone calls, father planning to be present for phone intake this afternoon. Will encourage patient to complete a safety plan, and will request his involvement in discussing aftercare and discharge planning. Patient is at high risk of harm to himself, as he has been on able to receive psychiatric intervention after a very serious suicide attempt. He is also actively engaging in disordered eating habits that put him at acute risk of harm to self if they are permitted to continue without intervention. Ideally, patient will be transferred to a facility that can work with him to manage these eating disorder behaviors in the long-term. We will assist in therapeutic intervention and mitigation of risk factors in the interim. Dr. Gail De La Cruz was directly involved in review and discussion of the patient's case and participated in medical decision making regarding treatment recommendations. (1) Suicide attempt by acetaminophen overdose: 04/14 - Treated on the medical floor for intentional Tylenol OD - has denied SI since admission, but has been unable to participate in meaningful psychiatric treatment on the medical floor - Admitted to a locked inpatient behavioral health unit, on q15 minute safety checks - Encourage participation in group and recreational therapies - Gather collateral information from outpatient providers - Suggest family meeting to involve outpatient supports in safety planning - Arrange appropriate aftercare - current request is for inpatient eating disorder treatment Encounter type: subsequent encounter Qualified Code(s): T39.1X2D - Poisoning by 4-Aminophenol derivatives, intentional self-harm, subsequent encounter (2) Anorexia: 04/14 - Pt met with dietitian on the medical floor, re-consult to discuss recommendations on the MHU given the restrictions of the setting are different - Continue to encourage compliance with dietary and exercise recommendations - Plan at this time is for discharge to an inpatient eating disorder treatment facility - Phone intake at [facility] this afternoon, patient hopeful for acceptance and to return to their facility in [place], [place] (3) Anxiety disorder: 04/14 - Has a reported history of obsessive and compulsive traits, comorbid eating disorder complicates this presentation - Will treat as unspecified anxiety disorder, and attempt to gather collateral information in order to differentiate a formal obsessive compulsive disorder. - Hydroxyzine available prn for acute anxiety - Encourage participation in group and recreational programming to assist with development of healthy and effective coping strategies Anxiety disorder type: unspecified anxiety disorder Qualified Code(s): F41.9 - Anxiety disorder, unspecified (4) Mood disorder: 04/14 - Historical diagnosis of major depressive disorder; pt reports frequent fluctuations in mood and high levels of impulsivity. His reports do not clearly outline symptoms consistent with a bipolar disorder, though this is on the differential. Other considerations include dysthymic disorder, bipolar disorder with mixed episodes or rapid cycling, and possible personality traits affecting mood presentation. Compounded with symptoms of his eating disorder, we will require additional information to tease out a more formal diagnosis - Given ongoing abnormalities with his liver enzymes, we will not be initiating psychiatric medications acutely - Encourage participation in group and recreational programming to develop healthy and effective coping strategies, and learn was to better manage impulsive tendencies - Assist with development of safety and discharge planning (5) Liver function abnormality: 04/14 - Pt seen by GI prior to medical clearance. Appreciate recommendations. - Recommending repeat liver panel and INR in 3 days, 7 days, and then weekly until normalization - Will order labs according to this timeline - Expectation is reportedly that liver panel normalizes over an 8 weeks time period - Recommend avoiding medications metabolized by or toxic to the liver (6) Benzodiazepine abuse in remission: 04/14 - Pt reports history of Xanax abuse - have participated in 3 different inpatient rehab programs - Most recent inpatient D&A rehab stay was in 11/2017 - Pt denies use of benzodiazepines or other illicit/controlled substances since that time Risk Factors Assessment Male: Yes : Yes Do You Have Access To A Gun?: No Health Problems: Yes Mental Health Diagnoses: Yes Substance Use Disorders: Yes Previous Attempt: Yes Family History of Suicide: Yes (paternal aunt attempted) Previous Psychiatric Hospitalization: Yes Hopelessness: Yes (episodically) Smoker: Yes Protective Factors Assessment Episcopal Beliefs: No : No Responsible for Young Children: No Employed: Yes Stable Relationships: No Supportive Family: Yes Good Rapport with Provider: Yes Psychiatric History Identifying Data FERNANDO MATTHEWS is a 19-year-old M who currently lives in [place] with his parents and sister. Pt has a history of anorexia nervosa, depression, and OCD traits. He was hospitalized on the medical floor from 03/31/19 - 04/13/19 after an intentional overdose of Tylenol. He was admitted for inpatient psychiatric treatment on 04/13/19 16:58 on a 201 voluntary commitment for psychiatric intervention now that he is medically cleared. Information is gathered from hospital documentation and the patient himself. Chief Complaint "I've restraining a lot from exercising. I've even been journaling. To be honest, I'm going to be bombarded with groups at the eating disorder place, I would rather not do that here. You know, appreciate my last bit of freedom." History of Present Illness Fernando Matthews is a 19-year-old male admitted voluntarily on 04/13/2019 for inpatient psychiatric treatment. Patient was hospitalized on the medical floor at [facility] from 03/31/2018 through 04/13/2019, after serious Tylenol overdose, admittedly an attempt to end his life. Patient was seen on psychiatric consult service, and inpatient psychiatric hospitalization was recommended following medical clearance. Patient received treatment per poison control recommendations while on the medical floor, abnormal liver enzymes with maximum recorded levels of: AST - 9121 and ALT - 9432. These values were monitored regularly and steadily improved until medical clearance was appropriate. Patient was admitted voluntarily to our unit, though also expressed an interest in returning to the eating disorder treatment facility he had been admitted to recently. While on the medical floor, a phone intake with the [facility] had been scheduled for 04/14 in the afternoon - with plans to engage in psychiatric treatment until discharge planning can be arranged. Pt was cooperative with psychiatric assessment. He remembers this provider from our encounters during his medical admission. Pt states that he has been making improvement with regard to limiting his exercise and states he has also been journaling. Pt implies that he does not intend to participate in programming as "I'm going to be bombarded with groups at the eating disorder place." Pt was reminded of his voluntary admission status, and that our program is based on group participation. One reminded of these expectations, he states he will "comply" and attend groups. He shares that his mentality has been to enjoy his "freedom". Pt states that his mood is rather decent presently - as he was just permitted to walk laps prior to our encounter. He states "during exercise and immediately after, things are amazing. I feel great." Pt states that when he "withdraws from exercise" is when he becomes more frustrated and "angry." Pt states that he has yet to go one day in the hospital without engaging in some level of physical activity - despite restrictions from his dietitian that exercise be limited to 3 times a week. He states that during this "withdrawal" he may fee "fogged out and slowed down. I begin to doubt my power and strength." Even when discussing coping strategies outside of exercise, patient reports skills that still require physical exertion. He states that video games are generally a good distraction from exercise. Otherwise, he is requesting to "use the Wii and do other playful activities as much as possible." He admits to compulsive behavior as it relates to his exercise routine ("I have to do certain steps, if I miss them I have to go back and do it twice"), but denies any compulsions outside of his exercise. He states he has alarms on his phone that go off every hour "with some positive mantra or reminder to keep being the best I can be." Pt feels as though he is in a "really good state of mind to make this happen." He states that he has related to disorder eating behavior to that of training "[place] [employer]." He cites a "period of breaking down the body, before the rest period." Pt states, "I view this next step of treatment as my rest period, so I need to break down my body in preparation." He admits to history of depressed mood, but also rather impulsive actions. He states he experiences an "act now or I'll miss out" mentality - that often leads to him making impulsive decisions. He states that his mood is improved presently, but does admit to episodes of significantly lower mood - much like the one he states led to his suicidal ideation and overdose. This particular situation was reportedly related to an episode of binge eating - in which he woke up the next morning feeling rather terrible about his actions. Pt states he has not experienced this severity of depression since his initial admission. He denies continued SI as well. Pt describes his mood fluctuations as "a switch in my mind between the eating disorder mindset and my healthy mindset." He reports "they flip like a switch. When I'm healthy it may be daily, but sometimes it switches three times a day." Pt admits to anxiety - physically presenting with tachycardia, shortness of breath, more rapid speech, and increased irritability. He denies history of panic attacks. Pt denies SI, HI, SIB, A/V hallucinations, paranoia, PTSD, and other specific psychiatric symptoms. Past Psychiatric History Previous Psych History: Was previously seen at [facility] - visits with Dr. Maura Galindo, and ERICK Garcia from 12/2013 - 09/2016. Previous diagnoses of anorexia nervosa, depression, and obsessive/compulsive traits. Has been hospitalized for eating disorder treatment - most recently for 6-months at [facility] in [place], [place]. Current Psychiatric Diagnosis: Depression Outpatient Services: Psychiatric medication management - Leyda Winkler - [facility] Therapist - [place] [facility] Outpatient ED treatment team: Dr. De Leon (physician), Rachael Faustin (dietitian) Previous Psych Admissions: [facility] - 02/2016 Admitted to 8 Eating Disorder treatment facilities; 3 prior inpatient D&A rehab facilities Do You Have Access To A Gun?: No History of Previous Suicide Attempt: Yes (intentional Tylenol overdose, 03/31/19) Past Medication Trials: 1. Abilify 2. Effexor 3. BuSpar 4. Prozac 5. Remeron 6. Zyprexa 7. Strattera Past Head Trauma/Neuro History History of Concussion/Seizure: Yes (reports 3 concussions; experienced seizures until age 10y/o) Allergies Allergy/AdvReac Type Severity Reaction Status Date / Time No Known Allergies Allergy NONE Unverified 03/31/19 18:07 Home Medications Home Medications Medication Instructions Recorded Confirmed Type cholecalciferol (vitamin D3) 2,000 unit PO QAM #60 tab 04/13/19 Rx [Vitamin D3] nicotine [Nicoderm CQ] 21 mg TRANSDERMAL DAILY #30 ea 04/13/19 Rx Family History Family History of: Depression and Alcoholism/Drug Abuse Family Mental Health History Comment: paternal aunt with depression and at least 1 suicide attempt; maternal uncle with alcohol abuse disorder Alcohol History Hx of Alcohol Use Over the Past 12 Months: Yes (once month) AUDIT Total Score: 3 Pt reports limited alcohol use, stating the calorie content often leads him to refrain from drinking. Denies excessive use to the point of blacking out. No formal treatment for alcohol abuse in the past. Smoking Use Have You Smoked or Used Tobacco Products in the Last 30 Days: Yes tobacco type: cigarettes Smoking Status: Current every day smoker Smoking packs per day: 2 Substance History Hx of Prescription Med Misuse Over the Past 12 Months: Yes (adderall) Hx of Over the Counter Med Misuse Over the Past 12 Months: No Hx of Inhalent Misuse Over the Past 12 Months: No Hx of Organic Substance Use Over the Past 12 Months: Yes (marijuana daily) Hx of Illegal Substances/Street Drug Use Over Past 12 Months: Yes Pt admits to regular use of cannabis, generally daily. Last smoked just prior to his overdose. Pt admits to history of Xanax abuse, having been in inpatient D&A rehab on 3 occasions. Most recently he attended a facility in [place] in 11/2017. 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 Mother No problems noted. 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 Beliefs That Will Affect Care: None Current Living Situation: Parent Feels Safe at Home: Yes Smoking Status: Current every day smoker Tobacco Type: cigarettes ; Cigarettes Per Day: 1 ; Second Hand Exposure: Yes ; Hx Alcohol Use: Yes Alcohol type: hard liquor Hx Substance Use: Yes substance use type: marijuana Substance Use Type Other:: Xanax Last Used Substance: Days (ago) Review of Systems Review of Systems: Constitutional: denied Cardiovascular: denied Respiratory: denied Gastrointestinal: denied Neurological: denied Psychiatric: denies symptoms other than stated above Total of at least 10 systems reviewed, pertinent positives as above and in HPI. Physical Exam Psychiatric: Orientation: alert, oriented x 3 and cooperative (superficially, though appearing mildly impatient with interview) Apperance: appropriately dressed and appropriately groomed; + did not appear stated age (appearing younger than stated age) male of healthy BMI, but appearing thin and of short stature. Pt is appropriately dressed for setting, wearing t-shirt, shorts, socks, and plastic sandals. Pt is appropriately groomed, hair is longer, but neatly styled. Level of hygiene appears appropriate. Eye Contact: good eye contact Motor Behavior: + psychomotor agitation (appearing restless and distracted) Speech: normal rate/rhythm/volume of speech (somewhat pressured, irritable tone at times) Affect: + anxious affect (appearing restless, easily distracted) and mood congruent with affect Mood: + anxious mood Thought Process: goal directed thought process, + perseveration (regarding ability to exercise) and thought association intact Thought Content: + preoccupation (with exercise schedule and discharge plans) and + cognitive distortions (consistent with diagnosis of anorexia, maladaptive views of food/exercise); no hopelessness Grandiosity - 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 - making statements about "beginning to doubt my strength and power" Suicidal Thoughts: denies suicidal thoughts and denies suicidal intent Homicidal Thoughts: denies homicidal thoughts Hallucinations: no auditory hallucinations and no visual hallucinations Cognition: attention grossly intact and language grossly intact Insight: + poor insight Judgement: + poor judgement Vital Signs (Past 24 Hours): Last Vital Signs Temp 36.5 C 04/14/19 06:41 Pulse 88 04/14/19 06:42 Resp 20 04/14/19 06:41 BP 122/75 04/14/19 06:42 Pulse Ox 99 04/13/19 20:48 Exam Statement: A physical exam was performed on the medical floor prior to admission to the unit by Dr. Sarthak Noble MD. I accept that physical as correct/medical clearance for the inpatient physical exam. Results & Data Current Inpatient Medications Current Inpatient Medications: Current Inpatient Medications Al Hydrox/Mg Hydrox/Simethicone (Maalox) 30 ml PO Q4H PRN PRN Reason: GI Upset Stop: 05/13/19 16:57 Bismuth Subsalicylate (Kaopectate) 15 ml PO PRN PRN PRN Reason: Loose Stool Stop: 05/13/19 16:57 Hydroxyzine HCl (Vistaril) 50 mg PO HSZ PRN PRN Reason: Insomnia Stop: 05/13/19 16:57 Hydroxyzine HCl (Vistaril) 25 mg PO Q4H PRN PRN Reason: Anxiety Stop: 05/13/19 16:57 Magnesium Hydroxide (Milk Of Magnesia) 30 ml PO DAILY PRN PRN Reason: Constipation Stop: 05/13/19 16:57 Miscellaneous (Remove Nicoderm Patch) 1 ea N/A DAILY MICHAEL Stop: 05/15/19 08:59 Nicotine (Nicoderm Cq) 21 mg TD DAILY MICHAEL Stop: 05/14/19 08:59 Last Admin: 04/14/19 08:30 Dose: 21 mg Documented by: Sodium Chloride ([place] Nasal) 1 - 2 sprays NA PRN PRN PRN Reason: Nasal Dryness/Congestion Stop: 05/13/19 16:57 Vitamin D (Vitamin D3) 2,000 units PO QAM MICHAEL Stop: 05/14/19 08:59 Last Admin: 04/14/19 08:29 Dose: 2,000 units Documented by:
[2019-04-14 18:07] VITALS: PULSE 86
--- NOTE | 2019-04-14 18:16 | Discharge Summary ---
Date of Service April 14, 2019 History of Present Illness Fernando Paiz is a 19-year-old male admitted voluntarily on 04/13/2019 for inpatient psychiatric treatment. Patient was hospitalized on the medical floor at [facility] from 03/31/2018 through 04/13/2019, after serious Tylenol overdose, admittedly an attempt to end his life. Patient was seen on psychiatric consult service, and inpatient psychiatric hospitalization was recommended following medical clearance. Patient received treatment per poison control recommendations while on the medical floor, abnormal liver enzymes with maximum recorded levels of: AST - 9121 and ALT - 9432. These values were monitored regularly and steadily improved until medical clearance was appropriate. Patient was admitted voluntarily to our unit, though also expressed an interest in returning to the eating disorder treatment facility he had been admitted to recently. While on the medical floor, a phone intake with the [facility] had been scheduled for 04/14 in the afternoon - with plans to engage in psychiatric treatment until discharge planning can be arranged. Pt was cooperative with psychiatric assessment. He remembers this provider from our encounters during his medical admission. Pt states that he has been making improvement with regard to limiting his exercise and states he has also been journaling. Pt implies that he does not intend to participate in programming as "I'm going to be bombarded with groups at the eating disorder place." Pt was reminded of his voluntary admission status, and that our program is based on group participation. One reminded of these expectations, he states he will "comply" and attend groups. He shares that his mentality has been to enjoy his "freedom". Pt states that his mood is rather decent presently - as he was just permitted to walk laps prior to our encounter. He states "during exercise and immediately after, things are amazing. I feel great." Pt states that when he "withdraws from exercise" is when he becomes more frustrated and "angry." Pt states that he has yet to go one day in the hospital without engaging in some level of physical activity - despite restrictions from his dietitian that exercise be limited to 3 times a week. He states that during this "withdrawal" he may fee "fogged out and slowed down. I begin to doubt my power and strength." Even when discussing coping strategies outside of exercise, patient reports skills that still require physical exertion. He states that video games are generally a good distraction from exercise. Otherwise, he is requesting to "use the Wii and do other playful activities as much as possible." He admits to compulsive behavior as it relates to his exercise routine ("I have to do certain steps, if I miss them I have to go back and do it twice"), but denies any compulsions outside of his exercise. He states he has alarms on his phone that go off every hour "with some positive mantra or reminder to keep being the best I can be." Pt feels as though he is in a "really good state of mind to make this happen." He states that he has related to disorder eating behavior to that of training "[employer]." He cites a "period of breaking down the body, before the rest period." Pt states, "I view this next step of treatment as my rest period, so I need to break down my body in preparation." He admits to history of depressed mood, but also rather impulsive actions. He states he experiences an "act now or I'll miss out" mentality - that often leads to him making impulsive decisions. He states that his mood is improved presently, but does admit to episodes of significantly lower mood - much like the one he states led to his suicidal ideation and overdose. This particular situation was reportedly related to an episode of binge eating - in which he woke up the next morning feeling rather terrible about his actions. Pt states he has not experienced this severity of depression since his initial admission. He denies continued SI as well. Pt describes his mood fluctuations as "a switch in my mind between the eating disorder mindset and my healthy mindset." He reports "they flip like a switch. When I'm healthy it may be daily, but sometimes it switches three times a day." Pt admits to anxiety - physically presenting with tachycardia, shortness of breath, more rapid speech, and increased irritability. He denies history of panic attacks. Pt denies SI, HI, SIB, A/V hallucinations, paranoia, PTSD, and other specific psychiatric symptoms. Physical Exam Psychiatric Orientation: alert, oriented x 3 and cooperative (superficially, though appearing mildly impatient with interview) Apperance: appropriately dressed and appropriately groomed; + did not appear stated age (appearing younger than stated age) Eye Contact: good eye contact Motor Behavior: + psychomotor agitation (appearing restless and distracted) Speech: normal rate/rhythm/volume of speech (somewhat pressured, irritable tone at times) Affect: + anxious affect (appearing restless, easily distracted) and mood congruent with affect Mood: + anxious mood Thought Process: goal directed thought process, + perseveration (regarding ability to exercise) and thought association intact Thought Content: + preoccupation (with exercise schedule and discharge plans) and + cognitive distortions (consistent with diagnosis of anorexia, maladaptive views of food/exercise); no hopelessness Suicidal Thoughts: denies suicidal thoughts and denies suicidal intent Homicidal Thoughts: denies homicidal thoughts Hallucinations: no auditory hallucinations and no visual hallucinations Cognition: attention grossly intact and language grossly intact Insight: + poor insight Judgement: + poor judgement Vital Signs (Past 24 Hours) Last Vital Signs Temp 36.5 C 04/14/19 06:41 Pulse 88 04/14/19 06:42 Resp 20 04/14/19 06:41 BP 122/75 04/14/19 06:42 Pulse Ox 99 04/13/19 20:48 Principal Diagnosis - Anorexia Nervosa - Mood disorder - Anxiety disorder, unspecified - Mixed obsessional thoughts and actions Psychiatric Data 19-year-old male admitted voluntarily for inpatient psychiatric treatment on 04/13/2019. Patient was hospitalized on the medical floor between 03/31/2019 and 04/13/2019, after intentionally overdosing on Tylenol as a suicide attempt. Coordination between poison control and higher level care centers was maintained during his hospitalization, as his liver enzymes reached a recorded maximum of AST - 9121 and ALT - 9432. As bilirubin and PT/INR remained within a decent range, close monitor continued. Pt was eventually medically cleared and transferred to inpatient psychiatric treatment to address mood disorder, disordered eating habits related to diagnosis of anorexia, and other stressors leading to his suicide attempt. Patient has expressed interest in being referred to an inpatient facility specializing in the treatment of eating disorders. He is scheduled for an intake with [facility] on 04/14 and was accepted. As his liver enzymes remain abnormal, we are advising against beginning psychiatric medications at this time. Patient was informed of this recommendation, and is currently in agreement. GI/hospitalist recommendation is for repeat liver panel/INR in 3 days, in 7 days, and then weekly until normalization. Patient's dietitian had been reconsulted for this admission and weighed in on interim dietary and exercise guidance. Pt was to refrain from exercise, due to concern that he has continued to lose weight. Will defer additional recommendations to the [facility]. During his admission, patient was encouraged to participate in group and recreational programming. Family had been involved in phone calls, father was present for phone intake this afternoon. Patient remains at high risk of harm to himself, if discharged home without further intervention. He and family are agreeable to transfer to continue his treatment at the [facility] - and have secured flights to [place], [place] for an intake tomorrow. His presenting symptoms are most amenable to that type of treatment setting, and our team has worked to coordinate transfer. Parents and patient informed that it is being recommended that the patient be under constant supervision from the time he leaves our facility, until he enters the [facility]. All parties had verbalized u nderstanding and were agreeable with this plan. Parents are reportedly planning to buy plane tickets to accompany patient on the flight and through the intake process. Based on review of patient's case and their current presentation, risk of harm to self or others in the acute transportation phase, is not perceived to be acute - and he seems appropriate for supervised transfer to a higher level of eating disorder treatment. Pt verbalized understanding of discharge plan reviewed and is agreeable with plan to be discharged to the [facility], with intake tomorrow. Day of Discharge Assessment See H&P - as arrangements for transfer to an inpatient eating disorder treatment facility were made shortly after his initial psychiatric evaluation. Transition of Care Transition Of Care Record: was reviewed with the patient Advance Directives Advance Directives Information Provided: Yes Advance Directives: No Mental Health Advance Directive: No Advance Directives on File: No Living Will: No Power of Elevator Erector: No Advance Directives Reason:: Declines as Mental Health Visit. Risk Factors Assessment Presenting risk factors reviewed on discharge. Precipitating stressors mitigated by: admission for inpatient psychiatric observation and treatment, attendance of therapeutic treatment groups, development of healthy and effective coping strategies, involvement of outpatient supports, and education on diagnoses. Pt has demonstrated improvement in condition with regard to resolution of SI and ability to coordinate for transfer to a specialized eating disorder treatment facility. Harm to self remains high, if patient should be permitted to continue to engage in this level of restrictive eating of compulsive exercising. He also remains at risk of repeat suicide attempts without adequate supervision and ongoing treatment. Inpatient eating disorder treatment is being recommended, and acceptance to a facility in [place] has been confirmed. Risks associated with this transfer were discussed with patient and family, all of whom were agreeable with discharge to [facility]. Recommendation is that patient be constantly supervised, and patient and parents have agreed. Male: Yes : Yes Do You Have Access To A Gun?: No Health Problems: Yes Mental Health Diagnoses: Yes Substance Use Disorders: Yes Previous Attempt: Yes Family History of Suicide: Yes (paternal aunt attempted) Previous Psychiatric Hospitalization: Yes Hopelessness: Yes (episodically) Smoker: Yes Protective Factors Assessment [employer] Beliefs: No : No Responsible for Young Children: No Employed: Yes Stable Relationships: No Supportive Family: Yes Good Rapport with Provider: Yes Tobacco Cessation at Discharge Tobacco Cessation Medication Prescribed at Discharge: Offered & Pt Refused Total Time Total Time Spent: Greater Than 30 Minutes Total Time Includes: Examination of the patient, Discharge Planning, Medication Reconciliation and Communication with other providers Hospital Course (1) Suicide attempt by acetaminophen overdose: 04/14 - Treated on the medical floor for intentional Tylenol OD - has denied SI since admission, but has been unable to participate in meaningful psychiatric treatment on the medical floor - Admitted to a locked inpatient behavioral health unit, on q15 minute safety checks - Encourage participation in group and recreational therapies - Gather collateral information from outpatient providers - Suggest family meeting to involve outpatient supports in safety planning - Arrange appropriate aftercare - current request is for inpatient eating disorder treatment (2) Anorexia: 04/14 - Pt met with dietitian on the medical floor, re-consult to discuss recommendations on the MHU given the restrictions of the setting are different - Continue to encourage compliance with dietary and exercise recommendations - Plan at this time is for discharge to an inpatient eating disorder treatment facility - Phone intake at [facility] this afternoon, patient hopeful for acceptance and to return to their facility in [place], [place] (3) Anxiety disorder: 04/14 - Has a reported history of obsessive and compulsive traits, comorbid eating disorder complicates this presentation - Will treat as unspecified anxiety disorder, and attempt to gather collateral information in order to differentiate a formal obsessive compulsive disorder. - Hydroxyzine available prn for acute anxiety - Encourage participation in group and recreational programming to assist with development of healthy and effective coping strategies (4) Mood disorder: 04/14 - Historical diagnosis of major depressive disorder; pt reports frequent fluctuations in mood and high levels of impulsivity. His reports do not clearly outline symptoms consistent with a bipolar disorder, though this is on the differential. Other considerations include dysthymic disorder, bipolar disorder with mixed episodes or rapid cycling, and possible personality traits affecting mood presentation. Compounded with symptoms of his eating disorder, we will require additional information to tease out a more formal diagnosis - Given ongoing abnormalities with his liver enzymes, we will not be initiating psychiatric medications acutely - Encourage participation in group and recreational programming to develop healthy and effective coping strategies, and learn was to better manage impulsive tendencies - Assist with development of safety and discharge planning (5) Liver function abnormality: 04/14 - Pt seen by GI prior to medical clearance. Appreciate recommendations. - Recommending repeat liver panel and INR in 3 days, 7 days, and then weekly until normalization - Will order labs according to this timeline - Expectation is reportedly that liver panel normalizes over an 8 weeks time period - Recommend avoiding medications metabolized by or toxic to the liver (6) Benzodiazepine abuse in remission: 04/14 - Pt reports history of Xanax abuse - have participated in 3 different inpatient rehab programs - Most recent inpatient D&A rehab stay was in 11/2017 - Pt denies use of benzodiazepines or other illicit/controlled substances since that time Mental Health & Subst Abuse Tx Psychiatrist Name of Psychiatrist: Mello Winkler Psychiatrist's Psychiatric Appointment Comment: [address] [facility], [place] [address] Therapist Name of Therapist: [facility] Therapist's Therapy Appointment Comment: [address] [facility], [place] [address] Post Discharge Appointments Primary Care Physician Name Of Family Doctor: [facility] - Dr. Bennett Primary Care Provider Appointment Comment: [address], [address], [place] [address] Specialist Name of Specialist: [facility] Data Processing Control Clerkobed Cano Phone Number for Specialist: [phone] Specialty Appointment Comment: [address] [facility], [place] [address] Smoking Cessation Counseling Tobacco Cessation Medication Prescribed at Discharge: Offered & Pt Refused Contact Information Discharge Discharge Address: [address] [place] [id number] Discharge Plan Discharge Items Patient Disposition: Home - Self-Care Reason For Visit: DEPRESSION Discharge Diagnosis: - Anorexia nervosa - Mood disorder - S/P intentional Tylenol overdose Activity: As commented below Activity Comment: Activity and dietary guidelines per dietitian recommendations Exercise/Sports: None Exercise Comment: Refrain from exercise until evaluated at inpatient ED treat ent facility Non-emergency contact: Primary Care Provider, Psychiatrist and Therapist Call non-emergency contact if: you have any medication questions and your symptoms worsen Follow-up/Referrals: Paola De Leon MD [Primary Care Provider] - Dietitian Info: Continue to follow ERC Meal Plan with "C snacks", challenge foods daily Diet: Regular Diet Comment: Will defer any additional adjustments to inpatient ED program Addtl Attending Provider Instructions: SPECIAL CARE INSTRUCTIONS: You are being discharged at your request to an inpatient facility, specializing in eating disorder treatment. Recommendation is that you are supervised for the duration of the trip, and you and your family have verbalized agreement with this plan. 1. Follow through with your scheduled aftercare appointments. If unable to keep an appointment, please call to reschedule. 2. Utilize new healthy coping skills, anger management skills, and stress management skills learned during your hospitalization. Journal feelings and process them with a support person. Identify stressors or situations that may result in relapse, deterioration or inappropriate behaviors and develop a plan to deal with those issues. 3. If your coping skills are ineffective and you are in crisis, contact your outpatient providers for direction. If unable to reach your providers, please call the CAN HELP LINE AT or go to the closest Emergency Room. 4. Avoid alcohol and un-prescribed drugs. 5. You have been provided with the Mental Health Advance Directives Pamphlet for your review. AFTERCARE APPOINTMENTS: * Please call your insurance company prior to your scheduled appointment to confirm your aftercare providers are covered. Take your insurance information to your appointments. WHO TO CALL AND WHEN: Medical Emergencies: For questions or emergencies related to your hospital stay, please contact the Inpatient Behavioral Health Unit at [phone]. A nuclear radiation engineer is on-call 11/12 for the Behavioral Health Unit for emergencies At any time you feel your situation is an emergency, you may also call 911 immediately. Your Discharge Instructions noted above were prepared by provider Edith C. Schwer, PA-C. Pending Studies at Discharge: Yes Studies:: It is being recommended that your liver panel and INR be repeated in 3 days, in 7 days, and then weekly until normalization. Stand-Alone Forms: My [facility], Smoking Cessation Medications and DC Order Prescriptions: Continued nicotine [Nicoderm CQ] 21 mg/24 hr Patch 24 Hour 21 mg transdermal DAILY Qty: 30 RF: 0 cholecalciferol (vitamin D3) [Vitamin D3] 25 mcg (1,000 unit) Tablet 2,000 unit PO QAM Qty: 60 RF: 2 Discharge Orders: Discharge Order (Routine); Ordered 04/14/19 Ordered By: Edith Culver Admission Data Admit Date/Time: 04/13/19 16:58 Attending Provider: Gail De La Cruz Admit Provider: Gail De La Cruz Primary Care Provider: Paola De Leon Other Interventions: PSY Interdisciplinary Discharge Planning Last Done: 04/14/19 13:57 Coding Level of Care Code 93110 D/C day mgmt > 30 min Diagnoses Suicide attempt by acetaminophen overdose T39.1X2D Encounter type: subsequent encounter Anorexia R63.0 Anxiety disorder F41.9 Anxiety disorder type: unspecified anxiety disorder Mood disorder F39 Liver function abnormality K76.89 Benzodiazepine abuse in remission F13.11
== END 2019-04-14 18:20 | disposition home or self-care (01) | DRG 885 ==
LOC: 3S 16:58